=== PATIENT | female | born 1990 | race Caucasian/White ===

== ENCOUNTER 2016-12-28 11:12 | Inpatient (IN) | payer BC, OTHER ==
[~2016-12-28] VITALS: Ht 165.1 cm; Wt 53.5 kg
[2016-12-28] MEDS ORDERED: MAG HYDROX/AL HYDROX/SIMETH 30 ML LIQUID UDC PO PRN (20:45)
[2016-12-28] MEDS ORDERED: MIRALAX 17 GM POWD.PACK PO PRN (20:45)
[2016-12-28] MEDS ORDERED: DICYCLOMINE HCL 20 MG TABLET PO PRN (20:45)
[2016-12-28] MEDS ORDERED: CLONIDINE HCL 0.1 MG TABLET PO PRN (20:45)
[2016-12-28] MEDS ORDERED: MAGNESIUM HYDROXIDE 30 ML LIQUID UDC PO PRN (20:45)
[2016-12-28] MEDS ORDERED: LORAZEPAM 2 MG/1 ML VIAL IM PRN (20:45)
[2016-12-28] MEDS ORDERED: ONDANSETRON ODT 4 MG TAB.RAPDIS SL PRN (20:45)
[2016-12-28] MEDS ORDERED: LOPERAMIDE HCL 2 MG CAPSULE PO PRN ×2 (20:45)
[2016-12-28] MEDS ORDERED: ACETAMINOPHEN 325 MG TABLET PO PRN (20:45)
[2016-12-28] MEDS ORDERED: IBUPROFEN 400 MG TABLET PO PRN (20:45)
[2016-12-28] MEDS ORDERED: ONDANSETRON 4 MG/2 ML VIAL IM PRN (20:45)
[2016-12-28] MEDS ORDERED: LORAZEPAM 1 MG TABLET PO PRN ×2 (20:45)
[2016-12-28] MEDS ORDERED: THIAMINE HCL 200 MG/2 ML VIAL IM ONE (21:00)
[2016-12-28 21:10] VITALS: BP 112/74
--- NOTE | 2016-12-28 21:10 | NUR ---
ADMISSION NOTE: Patient is a 26 old female admitted to [facility] on 12/28/16 at 2110 for Alcohol and Gabapentin dependence. Patient is coming to intake office from ER [facility] ambulatory with steady gate, stable, alert and oriented x4. Speech is soft and clear. Patient has NKA, is on Regular Diet, and is Full Code status. Patient is on Seizure and Fall Precautions. Patient denies History of Seizures. PMH: Anxiety, Depression, Alcohol and Gabapentin Abuse, Bulimia and Anorexia Disorders. Patient has no PCP. VS: T: 97'9; BP: 112/74; HR: 57; RR: 18; O2 SAT: 100%. Pain level "0/10". Patient states that she is in the [facility] "first time for Safety Detox from Alcohol and Gabapentin". Patient reports that she uses Alcohol "since 16 year old. Longest period of sobriety during 5 months since 07/21/16 to 11/2016. Relapsed 2 weeks ago. She is drinking every day Vodka 750 ml. Last taken Vodka 750 ml PO on 12/28/16@ 1200". Patient reports of prescriptions home medications used: Gabapentin since 2013. Last 2 weeks patient used 400 mg PO every 6 hours, or 1200mg PO per day. Last dose taken 12/28/16: 400mg PO@ 1200. Methenamine Chacha PO last 2 weeks PO 1 gm BID, or 2 gm PO per day. Last dose taken 1 gm PO on 12/28/16 @ 1200". Patient brought her home medications. Initial assessment done. CIWA 12. Patient reports the following symptoms of withdrawal: Anxiety, agitation, nervousness, tremors, diaphoresis, restless legs, and fatigue. Patient denies SI/HI. Patient reports that she has been recently in "Detox treatment at ""[facility]" at [place], [place] two weeks ago for three days". Respirations even and unlabored. Patient denies chest pain and SOB. Lungs Sounds are clear bilaterally. Bowel Sounds is active in all 4 quadrants. Last Bowel Movement was " 12/28/16 at 1100". Skin is intact, warm and dry to touch. Doctor Romel Gallegos MD aware for patient's condition. Patient. is oriented to her room and unit, education provided on Hand Washing, Hepatitis C, Alcohol Abuse and Withdrawal, Falls and Seizures. Patient oriented to the unit and to the room. All needs met. Safety measures in the place. Call light within reach, bed in the lowest position, and locked, padded bed rails up x2. Will continue to monitor closely.
--- NOTE | 2016-12-28 21:10 | NUR ---
PRE-ADMISSION NOTE: Patient assessed in intake office at 2100 on 12/28/2016. Patient is coming from ER. Patient is ambulatory with steady gate, stable, alert and oriented x4. Speech is soft and clear. VS: T: 97'9; BP: 112/74; HR: 57; RR: 18; O2 SAT: 100%. Pain level "0/10". Patient states that she is in the [facility] "first time for Safety Detox from Alcohol and Gabapentin". Patient reports last use Alcohol "Vodka 750 ml PO - 12/28/16@ 1200". Patient reports "Prescription drugs" uses: Gabapentin " 400 mg PO every 6 hours, or 1200mg PO per day. Last taken 12/28/16: 400mg PO@ 1200 "; Methenamine Chacha PO " 1 gm PO BID, or 2 gm PO per day. Last taken 12/28/16: 1 gm PO @ 1200". Patient's CIWA 12. The patient presented with the following symptoms of withdrawal: anxiety, agitation, nervousness, tremors, diaphoresis, restless legs, and fatigue. Patient reports that she has been recently in "Detox treatment at ""[facility]" [place], [place] two weeks ago for three days". Patient instructed on unit protocol of vitals Q4H and CIWA assessments. Patient verbalized understanding and agreement. Patient also instructed on policy regarding destruction of any controlled substances/prescriptions brought to facility, and handling of all medications. Patient verbalized understanding and agreement. Will complete admission assessment when patient is brought up to unit.
[2016-12-28 21:42] LABS: *URINE HCG, QUAL NEGATIVE (NEGATIVE)
--- NOTE | 2016-12-28 21:55 | NUR ---
PRN ATIVAN PO 1 MG 1 TAB ADMINISTRATION Patient c/o increased anxiety and tremors. Patient assessed. CIWA 15. PRN Ativan PO 1 mg administrated as ordered with full glass of water. Patient tolerated well. All needs met. Safety measures in the place. Call light within reach, bed in the lowest position, and locked, padded bed rails up x2. Will continue to monitor closely.
[2016-12-28] MEDS ORDERED: LORAZEPAM 1 MG TABLET ONE (22:04)
[2016-12-28 22:06] LABS: *AMPHETAMINE, URINE NEGATIVE (NEGATIVE); *BARBITURATE, URINE NEGATIVE (NEGATIVE); *CANNABINOID, URINE NEGATIVE (NEGATIVE); *COCCAINE, URINE NEGATIVE (NEGATIVE); *OPIATE, URINE NEGATIVE (NEGATIVE); *PHENCYCLIDINE SCREEN,URINE NEGATIVE (NEGATIVE)
--- NOTE | 2016-12-28 22:55 | NUR ---
RE-ASSESSMENT Patient's in the room re-assessed. CIWA 8. Patient said that "Ativan was effective". All needs met. Safety measures in the place. Call light within reach, bed in the lowest position, and locked, padded bed rails up x2. Will continue to monitor closely.
[2016-12-28] MEDS ORDERED: GABA-536 PO (23:04)
[2016-12-28] MEDS ORDERED: METH1TAB29 PO (23:14)
[2016-12-28] MEDS ORDERED: METH1POW39 MC (23:14)
[2016-12-28] MEDS: diphenhydrAMINE 50 MG CAPSULE PO PRN (23:53)
--- NOTE | 2016-12-28 23:53 | NUR ---
PRN BENADRYL PO 50 MG 2 CAPS AND PRN CLONIDINE PO 0.1 MG 1 TAB ADMINISTRATION Patient c/o increased anxiety and insomnia. Patient assessed. VS WNL. PRN Benadryl PO and PRN Clonidine PO discussed with patient. Patient's educated for actions, adverse reactions, and side effects of Benadryl and Clonidine. Patient returned back knowledge by verbalized understanding. PRN Benadryl PO 50 mg 1 tab and PRN Clonidine PO 0.1 mg 1 tab administrated as ordered with full glass of water. All needs met. Safety measures in the place. Call light within reach, bed in the lowest position, and locked, padded bed rails up x2. Will continue to monitor closely.
[2016-12-28] MEDS ORDERED: CLONIDINE HCL 0.1 MG TABLET ONE (23:58)
[2016-12-29] VITALS: BP 118/77
[2016-12-29] MEDS ORDERED: diphenhydrAMINE 50 MG CAPSULE ONE (00:01)
--- NOTE | 2016-12-29 00:53 | NUR ---
RE-ASSESSMENT Patient is sleeping. Respirations even and unlabored. RR: 14. PRN Benadryl PO and PRN Clonidine PO was effective. All needs met. Safety measures in the place. Call light within reach, bed in the lowest position, and locked, padded bed rails up x2. Will continue to monitor closely.
--- NOTE | 2016-12-29 03:50 | NUR ---
RE-ASSESSMENT Patient is sleeping. Respirations even and unlabored. RR: 14. PRN Benadryl PO and PRN Clonidine PO was effective. All needs met. Safety measures in the place. Call light within reach, bed in the lowest position, and locked, padded bed rails up x2. Will continue to monitor closely. Addendum: 12/29/16 at 0354 by VIBHA RAYO RN Incorrect time.
[2016-12-29 04:00] VITALS: BP 90/49
--- NOTE | 2016-12-29 06:58 | NUR ---
END OF SHIFT NOTE: Patient endorsed to day shift nurse in stable condition. Report given. Patient is a 26 old female admitted to [facility] on 12/28/16 for Alcohol and Gabapentin dependence. Patient has NKA, is on Regular Diet, and is Full Code status. Patient is on Seizure and Fall Precautions. Patient denies History of Seizures. PMH: Anxiety, Depression, Alcohol and Gabapentin Abuse, Bulimia and Anorexia Disorders. Last CIWA decreased from 12 to 4 @ 0400. Patient presented the following symptoms of withdrawal: Anxiety, agitation, nervousness, tremors, diaphoresis, restless legs, and fatigue. Patient denies SI/HI. VS at 0400: T: 98'2; BP: 90/49; HR: 71; RR: 14; O2 SAT: 95%. Respirations even and unlabored. Last Bowel Movement's "12/28/16 at 1100". Skin is intact, warm and dry by touch. PRN Ativan PO, PRN Benadryl PO, and PRN Clonidine PO administrated to patient during shift were effective. Patient slept 5hours, intake 850 ml, voided x 1. All needs met. Safety measures in the place. Call light within reach, bed in the lowest position, and locked, padded bed rails up x2.
--- NOTE | 2016-12-29 07:55 | NUR ---
START OF SHIFT: RECEIVED PT A/O X 4 LAYING IN BED.SHE PRESENTS WITH ANXIOUS MOOD AND GUARDED AFFECT. SHE C/O ANXIETY,AND SWEATS,RESTLESSNESS. HER HANDS ARE TREMULOUS. SHE STATES SHE SLEPT RESTLESS LAST NIGHT. CIWA 16. PRN ATIVAN 2 MG PO GIVEN. MADE AWARE. WILL MONITOR EFFECTIVENESS. ENCOURAGED REST AND INCREASED FLUIDS TODAY. WILL CONTINUE TO MONITOR AND OFFER SAFE AND SUPPORTIVE ENVIRONMENT
[2016-12-29 08:00] VITALS: BP 100/60
[2016-12-29] MEDS: THIAMINE HCL 100 MG TABLET PO SCH (08:38)
[2016-12-29] MEDS: MULTIVITAMINS,THERAPEUTIC TABLET PO SCH (08:38)
[2016-12-29] MEDS: FOLIC ACID 1 MG TABLET PO SCH (08:38)
[2016-12-29] MEDS ORDERED: TUBERCULIN,PURIF.PROT.DERIV. 5 TU/0.1 ML TEST ID ONE (09:00)
--- NOTE | 2016-12-29 09:05 | NUR ---
REASSESSED PT AFTER 1 HR OF ATIVAN ADMINISTRATION. CIWA 7. ATIVAN PRN WAS EFFECTIVE.
[2016-12-29 12:00] VITALS: BP 108/68
[2016-12-29] MEDS ORDERED: LORAZEPAM 1 MG TABLET PO SCH (13:00)
[2016-12-29 14:12] LABS: BASOPHILS % (AUTO) 0.8 % (0.0-2.0); EOSINOPHILS % (AUTO) 0.9 % (0.0-7.0); HEMATOCRIT 38.8 % (37-47); HEMOGLOBIN 13.1 G/DL (12.0-16.0); LYMPHOCYTES % (AUTO) 24.2 % (20.5-51.5); MEAN CORPUSCULAR HEMOGLOBIN 31.7 UUG (27.0-31.0); MEAN CORPUSCULAR HGB CONC 34 g/dL (32.0-37.0); MEAN CORPUSCULAR VOLUME 93.9 FL (81.0-99.0); MONOCYTES # (AUTO) 0.4 K/UL (0.1-1.30); MONOCYTES % (AUTO) 9.4 % (0.0-11.0); NEUTROPHILS # (AUTO) 2.9 K/UL (1.8-8.9); NEUTROPHILS % (AUTO) 64.7 % (38.5-71.5); PLATELET COUNT (AUTO) 255 K/UL (150-450); RED BLOOD CELL COUNT(AUTO) 4.13 MIL/UL (4.2-5.4); WHITE BLOOD COUNT (AUTO) 4.3 K/UL (4.0-11.2)
[2016-12-29] MEDS: GABAPENTIN 300 MG CAPSULE PO SCH ×2 (14:18→20:36)
[2016-12-29] MEDS: LORAZEPAM 1 MG TABLET PO SCH ×2 (14:18→20:36)
[2016-12-29 14:41] LABS: ETHANOL < 3 MG/DL (0-0)
[2016-12-29 14:52] LABS: ALANINE AMINOTRANSFERASE 22 U/L (14-59); ALKALINE PHOSPHATASE 107 U/L (50-136); AMYLASE 117 U/L (25-115); ASPARTATE AMINOTRANSFERASE 36 U/L (15-37); BILIRUBIN,TOTAL 0.5 mg/dL (0.2-1.0); CARBON DIOXIDE 31 mmol/L (21-32); CHLORIDE 102 mmol/L (98-107); CREATININE 0.9 mg/dL (0.6-1.3); GLUCOSE 93 mg/dL (74-106); LIPASE 330 U/L (73-393); MAGNESIUM 1.7 mg/dL (1.8-2.4); POTASSIUM 3.7 mmol/L (3.5-5.1); TOTAL PROTEIN, SERUM 7.4 g/dL (6.4-8.2); UREA NITROGEN, BLOOD 9 mg/dL (7-18)
[2016-12-29 15:03] LABS: THYROID STIMULATING HORMONE 2.218 mIU/mL (0.358-3.740)
[2016-12-29 16:00] VITALS: BP 97/59
--- NOTE | 2016-12-29 18:14 | NUR ---
CIWA DEFERRED PT IS ASLEEP.
--- NOTE | 2016-12-29 18:45 | NUR ---
END OF SHIFT: PT WAS STARTED ON ATIVAN TAPER AT 1300. SHE STATES IT IS EFFECTIVE. PRN ATIVAN GIVEN THIS AM FOR CIWA 16 AND WAS EFFECTIVE AEB CIWA 7 AFTER 1 HR. PT RESTED IN BED MOST OF SHIFT AND WAS COMPLIANT WITH INCREASED FLUIDS.PPD PLANTED TO LFA. PPD PLANTED TO LFA. PT HAS A FAIR APPETITE. LAST CIWA DEFERRED PT WAS ASLEEP. WILL PASS SHIFT REPORT TO ONCOMING NIGHT NURSE.
--- NOTE | 2016-12-29 19:15 | NUR ---
Start of Shift Note: Patient is a 26 y/o female admitted on 12/28/16 for ETOH dependence. Patient reported drinking 750ml of Vodka daily for 2 weeks. Patient reported using Gabapentin 1200mg daily for 2 weeks. Patient has Anxiety, Depression, Eating disorders, and hx of UTI. No history of seizures. Patient is on a regular diet with no known food and drug allergies. Full Code status. Fall and Seizure precaution. Patient started today on a 4-day Ativan taper and tolerating well. Last CIWA is 7. Patient was given PRN Ativan in the morning. Patient is alert & oriented x4. Patient is ambulatory with a steady gait. No shortness of breath noted. Abdomen soft & non-distended. No nausea noted. Patient denies pain/discomfort. Patient complains of moderate anxiety. No agitations noted. Patient denies hallucinations. Safety precautions are in place. Bed locked in lowest position. Both side rails up. Call light within pts reach. Will continue to monitor patient.
[2016-12-29 20:00] VITALS: BP 134/77
[2016-12-30] VITALS: BP 105/58
[2016-12-30 04:00] VITALS: BP 104/62
--- NOTE | 2016-12-30 07:10 | NUR ---
Start of Shift Report from night nurse: Pt is a 26 y/o female her for Etoh dependence r/t 750mL Vodka daily for 2 weeks and Gabapentin 1200mg PO/d for 2 wks; 4 day Ativan taper ordered. Pt is a full code, regular diet, NKA, fall and seizure precautions noted.HHs: Anxiety, depression , eating d/o'd of bulimia and anorexia, UTi multiple times and relapsed since last detox in [place] 2 weeks ago. Endorsed to me to f/u with Dr. Gallegos re: the pt's home medications to be reconciled and with the psychiatrist for Trazodone for sleep. NO PRN medications given last night. V/S stable. Skin is intact. No new orders or labs endorsed to me. last CIWA 4. Pt is asleep in room. Will cont. to monitor the pt.
--- NOTE | 2016-12-30 07:19 | NUR ---
End of Shift Note: Endorse pt to day shift nurse. Pt continues on his Ativan taper and tolerating well. Patient is compliant with medications, treatment and plan of care. Pt reported taper medications is effective in controlling her withdrawal symptoms. Last CIWA is 4. No PRN medications were given during day shift. Pt remained stable and vitals remains WNL. Pt slept for a total of 9 hours. Pt consumed 855 ml of fluid. Encourage pt to increase fluid intake. Voided 2x with no bowel movement. All needs attended & met. Safety precautions are in place Will continue to monitor patient.
[2016-12-30 08:00] VITALS: BP 100/62
[2016-12-30 08:11] LABS: HEPATITIS B SURFACE AG Negative (Negative)
[2016-12-30] MEDS: GABAPENTIN 300 MG CAPSULE PO SCH ×3 (09:00→21:35)
[2016-12-30] MEDS: LORAZEPAM 1 MG TABLET PO SCH ×4 (09:00→21:00)
[2016-12-30] MEDS ORDERED: LORAZEPAM 1 MG TABLET PO SCH (09:00)
--- NOTE | 2016-12-30 10:00 | NUR ---
Medication Non-Administration Pt is asleep in room and sedated so HELD 0900H Ativan scheduled. is aware. Will cont. to monitor the pt. Addendum: 12/30/16 at 1926 by DARA JACKSON RN Edgard ZULETA since pt is asleep.
[2016-12-30 12:00] VITALS: BP 115/82
[2016-12-30] MEDS: MULTIVITAMINS,THERAPEUTIC TABLET PO SCH (13:41)
[2016-12-30] MEDS: THIAMINE HCL 100 MG TABLET PO SCH (13:41)
[2016-12-30] MEDS: FOLIC ACID 1 MG TABLET PO SCH (13:41)
[2016-12-30 16:00] VITALS: BP 140/75
--- NOTE | 2016-12-30 17:30 | NUR ---
Medication [id number] Pt is awake A&O x 4 in room and refused Ativan scheduled at 1700H. Pt states that she wants to get d/c'd as soon as possible tonight or tomorrow and does not want to stay until Tuesday as she states is discussed with the window caser and states that she will go AMA tomorrow. I notified the CN, window caser and Eric. Will cont. to monitor the pt.
--- NOTE | 2016-12-30 19:30 | NUR ---
Start of Shift Note: Patient is a 26 y/o female admitted on 12/28/16 for ETOH dependence. Patient reported drinking 750ml of Vodka daily for 2 weeks. Patient reported using Gabapentin 1200mg daily for 2 weeks. Patient has Anxiety, Depression, Eating disorders, and hx of UTI. No history of seizures. Patient is on a regular diet with no known food and drug allergies. Full Code status. Fall and Seizure precaution. Patient is on a 4-day Ativan tape. Pt's morning medication @ 0900 were held d/t sedation & pt refused scheduled Ativan @ 1900. Pt might leave AMA tonight or tomorrow. Pt stated that she cant stay until Tuesday. Rolls Mill Operator and Pt advocate is aware of possible AMA . Last CIWA is 6. No PRN medications were given during day shift. Patient is alert & oriented x4. Patient is ambulatory with a steady gait. No shortness of breath noted. Abdomen soft & non-distended. No nausea noted. Patient denies pain/discomfort. Patient complains of mild anxiety. No agitations noted. Patient denies hallucinations. Safety precautions are in place. Bed locked in lowest position. Both side rails up. Call light within pts reach. Will continue to monitor patient.
--- NOTE | 2016-12-30 19:31 | NUR ---
End of the Shift Report to night nurse: Pt is a 26 y/o female her for Etoh dependence r/t 750mL Vodka daily for 2 weeks and Gabapentin 1200mg PO/d for 2 wks; 4 day Ativan taper ordered and pt slept during until the afternoon so pt missed the 0900H of Ativan and Gabapentin. Pt is a full code, regular diet, NKA, fall and seizure precautions noted. HHx: Anxiety, depression , eating d/o's of bulimia and anorexia, UTi multiple times and relapsed since last detox in [place] 2 weeks ago. No PRN medications given during my shift. V/S stable. Skin is intact. Pt denies chest pain. No SOB noted. Pt missed attending group therapy and activities during my shift since she slept the majority of the time. Pt states that she may leave AMA tonight or tomorrow so I endorsed to CN, Switchboard Operator Supervisor and pt advocate. Last CIWA
[2016-12-30 20:00] VITALS: BP 112/73
[2016-12-30] MEDS ORDERED: MAGNESIUM OXIDE 400 MG TABLET PO ONE (21:00)
[2016-12-30] MEDS: diphenhydrAMINE 50 MG CAPSULE PO PRN (22:59)
--- NOTE | 2016-12-30 22:59 | NUR ---
PRN Benadryl Patient complains of inability to fall asleep. Patient requested for medication for sleep. PRN Trazodone administered as ordered. Will continue to monitor patient.
--- NOTE | 2016-12-30 23:59 | NUR ---
PRN Reassessment Patient asleep in bed and appears comfortable. No shortness of breath noted. Respiration even & unlabored. Safety measures in place. Will continue to monitor patient.
[2016-12-31] VITALS: BP 123/76
[2016-12-31 04:00] VITALS: BP 103/65
--- NOTE | 2016-12-31 07:01 | NUR ---
End of Shift Note: Endorse pt to day shift nurse. Pt has been refusing her Ativan taper and is planning to leave AMA today. Patient is taking her scheduled medication except for her taper medications. Educated pt of importance to finish treatment but pt insisted that she has something to do and cant stay longer. Last CIWA is 4. Pt noted with slight tremors and anxiety. Pt denies pain/discomfort, sweating, nausea & hallucinations. Pt was given PRN Benadryl for sleep and was effective. Pt remained stable and vitals remains WNL. Pt slept for a total of 7 hours. Pt consumed 1350 ml of fluid. Voided 3x with no bowel movement. All needs attended & met. Safety precautions are in place Will continue to monitor patient.
--- NOTE | 2016-12-31 07:30 | NUR ---
Start of shift note; Patient is AOX4. Patient is a 26 year old female admitted on 12/28/16 for ETOH withdrawals. Patient was placed on 4 day Ativan taper, no adverse reactions noted. Patient reported history of anxiety, depression, eating disorder. NKA, full code status on a regular diet. Per endorsement, patient has been refusing Ativan taper doses and expressed that she would like to leave today. Safety measures secured. Will continue to monitor patient.
[2016-12-31 08:00] VITALS: BP 107/66
[2016-12-31] MEDS: THIAMINE HCL 100 MG TABLET PO SCH (08:14)
[2016-12-31] MEDS: FOLIC ACID 1 MG TABLET PO SCH (08:14)
[2016-12-31] MEDS: GABAPENTIN 300 MG CAPSULE PO SCH (08:14)
[2016-12-31] MEDS: MULTIVITAMINS,THERAPEUTIC TABLET PO SCH (08:14)
[2016-12-31] MEDS ORDERED: LORAZEPAM 1 MG TABLET PO SCH ×2 (09:00)
[2016-12-31 12:00] VITALS: BP 117/84
[2016-12-31 13:45] LABS: *AMPHETAMINE, URINE NEGATIVE (NEGATIVE); *BARBITURATE, URINE NEGATIVE (NEGATIVE); *CANNABINOID, URINE NEGATIVE (NEGATIVE); *COCCAINE, URINE NEGATIVE (NEGATIVE); *OPIATE, URINE NEGATIVE (NEGATIVE); *PHENCYCLIDINE SCREEN,URINE NEGATIVE (NEGATIVE)
--- NOTE | 2016-12-31 14:50 | NUR ---
Discharge note; Patient is AOX4. Patient is medically cleared to for discharge. All valuables, belongings and medications given to patient. Patient was escorted out of the facility at 1450. Patient left in a stable condition, denies suicidal/homicidal ideations. Met all needs.
[2017-01-01] MEDS ORDERED: LORAZEPAM 1 MG TABLET PO SCH ×2 (09:00)
[2017-01-02] MEDS ORDERED: LORAZEPAM 1 MG TABLET PO SCH (09:00)
== END 2016-12-31 14:50 | disposition home or self-care (01) | DRG 895 ==
LOC: SRC 20:31
PROVIDERS: ADMIT Internal Medicine; ATTEND Internal Medicine
PROC: HZ2ZZZZ Detoxification Services for Substance Abuse Treatment (ICD-10-PCS; principal; 2016-12-28)
PROC: HZ31ZZZ Individual Counseling for Substance Abuse Treatment, Behavioral (ICD-10-PCS; 2016-12-29)
PROC: HZ41ZZZ Group Counseling for Substance Abuse Treatment, Behavioral (ICD-10-PCS; 2016-12-30)
DX: F10.230 Alcohol dependence with withdrawal, uncomplicated (principal); K85.20 Alcohol induced acute pancreatitis without necrosis or infection; Y90.9 Presence of alcohol in blood, level not specified; Z81.8 Family history of other mental and behavioral disorders; Y90.8 Blood alcohol level of 240 mg/100 ml or more; F41.9 Anxiety disorder, unspecified; E86.0 Dehydration; E83.42 Hypomagnesemia; F32.9 Major depressive disorder, single episode, unspecified
CPT/HCPCS: 36415; 70030-TC; 80307; 83690; 83735; 84443; 84703; 85025; 86580; 86592; 86705; 86803; 87340; 87806; G0480; J3411; Q0163

== ENCOUNTER 2016-12-28 13:22 | Emergency (ER) | payer BC, OTHER ==
[~2016-12-28] VITALS: Ht 170.2 cm; Wt 63.5 kg
--- NOTE | 2016-12-28 13:25 | NUR ---
Patient arrived to intake department visibly intoxicated needing assistance to ambulate. Patient was seated into wheelchair. Unable to understand directions or answer questions. Notified ER that patient will be transferred. Patient was transferred via wheelchair to room 3 ER. Report given to BRITANY Avila.
[2016-12-28] MEDS ORDERED: IV NORMAL SALINE 1000 ML BAG IV ONE ×2 (13:45→15:00)
[2016-12-28 14:35] LABS: BASOPHILS % (AUTO) 1.1 % (0.0-2.0); EOSINOPHILS # (AUTO) 0.1 K/uL (0.0-0.7); EOSINOPHILS % (AUTO) 1.5 % (0.0-7.0); HEMATOCRIT 35.8 % (37-47); HEMOGLOBIN 12.3 G/DL (12.0-16.0); LYMPHOCYTES # (AUTO) 1.4 K/UL (0.8-4.8); MEAN CORPUSCULAR HGB CONC 34 g/dL (32.0-37.0); MEAN CORPUSCULAR VOLUME 93.6 FL (81.0-99.0); MONOCYTES # (AUTO) 0.3 K/UL (0.1-1.30); MONOCYTES % (AUTO) 8.8 % (0.0-11.0); NEUTROPHILS % (AUTO) 52.6 % (38.5-71.5); PLATELET COUNT (AUTO) 220 K/UL (150-450); RED BLOOD CELL COUNT(AUTO) 3.83 MIL/UL (4.2-5.4); WHITE BLOOD COUNT (AUTO) 3.8 K/UL (4.0-11.2)
--- NOTE | 2016-12-28 14:35 | NUR ---
Pt had an episode of incontinence of urine, changed, able to sit in a chair w/ support; back in bed, inoxicated slurred speech; continue w/ MD orders;
[2016-12-28 14:38] LABS: CREATININE 0.8 mg/dL (0.6-1.3); POTASSIUM 3.7 mmol/L (3.5-5.1)
[2016-12-28 16:21] LABS: *AMPHETAMINE, URINE NEGATIVE (NEGATIVE); *BARBITURATE, URINE NEGATIVE (NEGATIVE); *CANNABINOID, URINE NEGATIVE (NEGATIVE); *COCCAINE, URINE NEGATIVE (NEGATIVE); *OPIATE, URINE NEGATIVE (NEGATIVE); *PHENCYCLIDINE SCREEN,URINE NEGATIVE (NEGATIVE)
--- NOTE | 2016-12-28 18:15 | NUR ---
Pt awake, oriented to place, cont to receive IV fluids; vss; cont to monitor;
--- NOTE | 2016-12-28 20:21 | NUR ---
Patient discharged to [facility] in stable conditon. Written and verbal after care instructions given. Patient verbalizes understanding of instructions.
[2016-12-28] MEDS ORDERED: GABA-536 PO (23:04)
[2016-12-28] MEDS ORDERED: METH1TAB29 PO (23:14)
[2016-12-28] MEDS ORDERED: METH1POW39 MC (23:14)
== END 2016-12-28 20:22 | disposition home or self-care (01) ==
LOC: ER 13:22
DX: F10.129 Alcohol abuse with intoxication, unspecified (principal)
CPT/HCPCS: 36415; 80307; 85025; A4663; G0480

== ENCOUNTER 2017-07-10 14:44 | Inpatient (IN) | payer BC, OTHER ==
[~2017-07-10] VITALS: Ht 170.2 cm; Wt 56.2 kg
[~2017-07-10 14:44] MED LIST: GABA-536 PO
--- NOTE | 2017-07-10 15:00 | NUR ---
Pre-Assessment Note Assessed client in intake office, client vitals BP 124/81, P 102, RR 16, Temp 97.8, spO2 @ 98% pain 0/10. Client appears visibly intoxicated, she does not need assistance to ambulate, she is a/o x 4, she avoids eye contact, she presents with glassy eyes, delayed speech. she explained unit and facility protocols, client verbalized understanding. She reports no episodes of withdrawal-indices seizure. She reports NKA. PCP Humphrey Ruvalcaba
--- NOTE | 2017-07-10 15:25 | NUR ---
ADMISSION 26 Year old female, arrived to [facility] unit, noted ambulating with steady gait. Patients body search completed by female CARBON ACCOUNTANT, no contraband found. body search completed, noted with intact skin, no breakdown, bruising, or discoloration noted. Patient is 5 feet 7 inches and is 124 lbs. Patients vital signs: 124/81 P: 102 t: 97.8 r: 16 o2 sat: 98%. Patient reports no known drug allergies. Patient reports substance use history of: etoh. Patient reports began using alcohol at the age of 16, but for the past two weeks has been consuming vodka 750ml or 4-6 beers on a daily basis. Patient reports she has been sober for 7 months after leaving [facility] detox. Patient was admitted at [facility] in December 28, 2016, completed detox, and as per patient did not go to treatment, went home, but remained sober. Patient brought home medication Neurontin 400mg PO qid, medication was reconciled and put into [facility]. Patient reports past medical history of anxiety and depression. Patient denies any history of seizures. patient denies any family history of substance abuse. Patient is alert and oriented x4. Patient is able to verbalized needs. Patient noted ambulating with steady gait, prevents with: intermittent nausea and anxiety with admitting ciwa score of: 7. Patient denies any hospitalization in the past 30 days. Patients pupils are equal and reactive to light, 4mm. Patients abdomen is soft and non distended, bowel sounds heard in all quadrants. Patients respirations are even and unlabored, no sob, lungs clear upon auscultation. Seizure and fall precaution observed and in place. bed in low position, padded side rails up and call light with in reach. Dr. Tabares and Dr. Olmos aware of new admission. Dr. Tabares input admitting orders. Safety measure sin place. call light with in reach, will monitor closely.
[2017-07-10] MEDS ORDERED: GABA-536 PO (15:32)
[2017-07-10 15:39] LABS: *URINE HCG, QUAL NEGATIVE (NEGATIVE)
[2017-07-10 15:47] LABS: *AMPHETAMINE, URINE NEGATIVE (NEGATIVE); *BARBITURATE, URINE NEGATIVE (NEGATIVE); *CANNABINOID, URINE NEGATIVE (NEGATIVE); *OPIATE, URINE NEGATIVE (NEGATIVE); *PHENCYCLIDINE SCREEN,URINE NEGATIVE (NEGATIVE)
[2017-07-10 16:03] LABS: *COCCAINE, URINE NEGATIVE (NEGATIVE)
[2017-07-10] MEDS ORDERED: MIRALAX 17 GM POWD.PACK PO PRN (16:15)
[2017-07-10] MEDS ORDERED: DICYCLOMINE HCL 20 MG TABLET PO PRN (16:15)
[2017-07-10] MEDS ORDERED: LOPERAMIDE HCL 2 MG CAPSULE PO PRN ×2 (16:15)
[2017-07-10] MEDS ORDERED: HYDROXYZINE PAMOATE 25 MG CAPSULE PO PRN (16:15)
[2017-07-10] MEDS ORDERED: LORAZEPAM 2 MG/1 ML VIAL IM PRN (16:15)
[2017-07-10] MEDS ORDERED: CLONIDINE HCL 0.1 MG TABLET PO PRN (16:15)
[2017-07-10] MEDS ORDERED: ONDANSETRON 4 MG/2 ML VIAL IM PRN (16:15)
[2017-07-10] MEDS ORDERED: ACETAMINOPHEN 325 MG TABLET PO PRN (16:15)
[2017-07-10] MEDS ORDERED: IBUPROFEN 400 MG TABLET PO PRN (16:15)
[2017-07-10] MEDS ORDERED: MAGNESIUM HYDROXIDE 30 ML LIQUID UDC PO PRN (16:15)
[2017-07-10] MEDS ORDERED: LORAZEPAM 1 MG TABLET PO PRN ×2 (16:15)
[2017-07-10] MEDS ORDERED: ONDANSETRON ODT 4 MG TAB.RAPDIS SL PRN ×2 (16:15→22:15)
[2017-07-10] MEDS ORDERED: THIAMINE HCL 200 MG/2 ML VIAL IM ONE (16:15)
[2017-07-10] MEDS ORDERED: MAG HYDROX/AL HYDROX/SIMETH 30 ML LIQUID UDC PO PRN (16:15)
--- NOTE | 2017-07-10 16:15 | NUR ---
PRN ZOFRAN IM Patient noted with intermittent nausea, also noted with two episodes of emesis, patient reports feeling nauseous. administered Zofran 4mg IM as ordered, will monitored effectiveness of medication.
--- NOTE | 2017-07-10 16:45 | NUR ---
MAGGIEAN REASSESSMENT patient reports medication somewhat effective, feels a little bit less nauseous. provided with crackers and Gingerall encouraged as tolerated. will continue to monitor.
[2017-07-10] MEDS: GABAPENTIN 400 MG CAPSULE PO SCH ×2 (17:01→23:16)
[2017-07-10 17:03] VITALS: BP 150/85
[2017-07-10 17:36] LABS: BASOPHILS # (AUTO) 0.1 K/uL (0.0-8.0); BASOPHILS % (AUTO) 1.2 % (0.0-2.0); EOSINOPHILS % (AUTO) 0.4 % (0.0-7.0); HEMATOCRIT 42.5 % (31.2-41.9); HEMOGLOBIN 14.5 g/dL (10.9-14.3); LYMPHOCYTES # (AUTO) 1.5 K/uL (20.0-40.0); LYMPHOCYTES % (AUTO) 23.1 % (20.5-51.5); MEAN CORPUSCULAR HEMOGLOBIN 32.9 uug (24.7-32.8); MEAN CORPUSCULAR HGB CONC 34 g/dL (32.3-35.6); MEAN CORPUSCULAR VOLUME 96.3 fL (75.5-95.3); MONOCYTES # (AUTO) 0.4 K/uL (2.0-10.0); MONOCYTES % (AUTO) 6.8 % (0.0-11.0); NEUTROPHILS # (AUTO) 4.3 K/uL (1.8-8.9); NEUTROPHILS % (AUTO) 68.5 % (38.5-71.5); PLATELET COUNT (AUTO) 370 K/uL (179-408); RED BLOOD CELL COUNT(AUTO) 4.41 MIL/uL (3.63-4.92); WHITE BLOOD COUNT (AUTO) 6.3 K/uL (3.8-11.8)
[2017-07-10 17:37] LABS: BILIRUBIN,TOTAL 0.6 mg/dL (0.2-1.0); CREATININE 0.9 mg/dL (0.6-1.3); MAGNESIUM 2.2 mg/dL (1.8-2.4); POTASSIUM 3.7 mmol/L (3.5-5.1); TOTAL PROTEIN, SERUM 8.6 g/dL (6.4-8.2)
--- NOTE | 2017-07-10 18:30 | NUR ---
IV INSERTION Patient inserted an Saline lock to left hand 22gauge, procedure well tolerated, aseptic technique observed during procedure. procedure well tolerated, IV site, patent, flushed with 10cc NS, no s/sx of infiltration noted, started patient on IVF D5 1/2 NS 125ML/HR. will continue to monitor closely.
[2017-07-10] MEDS: IV D5 1/2 NS 1000 ML 1,000 ML IV SCH (18:37)
--- NOTE | 2017-07-10 18:47 | NUR ---
COMMUNICATION Received critical lab value of blood alcohol level of 0.424, notified Dr. Tabares with new orders for patient to be with 1:1 sitter, and to start IVF d5 1/2 NS at 125cc/hr for 24 hours, and for lab work. orders were read back and clarified by charge nurse and input into [employer] by charge nurse, will administer as ordered. Addendum: 07/10/17 at 1850 by MATT CALLAWAY LVN NOTE ABOVE CORRECT TIME: 1820
--- NOTE | 2017-07-10 18:50 | NUR ---
START OF SHIFT NOTE: Patient is a 26 year old female admitted on 07/10/10`7 for Alcohol dependence. 5 Day Ativan taper ordered to start on 07/11/2017. Patient reports NKA, Regular Diet, Full Code, Fall and Seizures precautions. Patient denies History of Seizures. Patient denies SI/HI. PMH: Anxiety, Depression. Patient is alert and oriented x4. Patient is on 1:1 for Safety. CIWA 7. Patient's anxiety agitation, nervousness, tremors, restlessness, and sweating. VS: T: 98.4, HR: 111, RR: 19, RA O2Sat: 98%, BP: 117/78, Pain level: "0/10". Respirations unlabored and even. Lungs Sounds are clear thoroughly. Abdomen is soft, non-tender. Bowels Sounds presents in all x4 quadrants. Skin is intact, warm, and dry. IV on Left Hand, gauge 22 was inserted by day shift nurse as ordered. IV site patent and intact. Dressing is dry and clean. IVF with ordered D5 - /2 NS Soln @125mls/hr started @ 1837. Encouraged to fluids intake as tolerated. Encouraged to attending groups activities. All needs met. Safety measures in place: Call light within reach, bed locked, and in lowest position, padded bed rails up bilaterally. Patient endorsed by day shift nurse, report received. Addendum: 07/10/17 at 2137 by VIBHA RAYO RN Patient is a 26 year old female admitted on 07/10/2017 for Alcohol dependence.
[2017-07-10 20:00] VITALS: BP 117/78
--- NOTE | 2017-07-10 22:17 | NUR ---
PRN ZOFRAN INJ. 4 MG/2 ML IM ADMINISTRATION. Patient c/o nausea and vomiting x2. Doctor Romel Tabares MD aware. PRN Zofran 4 mg/2ml 1Inj. IM. administrated in Right Deltoid Muscle as ordered. Patient tolerated well. All needs met. Safety measures on place. Call light within reach, bed in lowest position and locked, padded rails up bilaterally rails up bilaterally. Will continue to monitor closely.
[2017-07-10] MEDS ORDERED: ONDANSETRON 4 MG/2 ML VIAL ONE (22:26)
--- NOTE | 2017-07-10 22:47 | NUR ---
RE-ASSESSMENT Patient denies nausea and vomiting. PRN Zofran 4 mg/2ml 1Inj. IM. administrated @2217 was effective. All needs met. 1:1 sitter for safety at bedside. Safety measures on place. Call light within reach, bed in lowest position and locked, padded rails up bilaterally rails up bilaterally. Will continue to monitor closely.
[2017-07-10] MEDS: diphenhydrAMINE 50 MG CAPSULE PO PRN (23:16)
--- NOTE | 2017-07-10 23:16 | NUR ---
PRN BENADRYL 50 MG 1 CAP PO AND PRN ATIVAN 2 MG 2 TAB PO ADMINISTRATION Patient c/o increased anxiety, tremors, and insomnia. CIWA 16. PRN Benadryl 50 mg 1 capsule PO for insomnia and PRN Ativan 2 mg 2 tab PO for CIWA 16 administrated with full glass of water as ordered. Patient tolerated well. All needs met. 1:1 sitter for safety at bedside. Safety measures on place. Call light within reach, bed in lowest position and locked, padded rails up bilaterally rails up bilaterally. Will continue to monitor closely.
[2017-07-11] VITALS: BP 122/78
--- NOTE | 2017-07-11 00:16 | NUR ---
RE-ASSESSMENT Patient is sleeping. Respirations even and unlabored. RR:16. PRN Benadryl 50 mg 1 capsule PO and PRN Ativan 2 mg 2 tab PO administrated @2316 were effective. All needs met. Safety measures on place. 1:1 sitter for safety at bedside. Call light within reach, bed in lowest position and locked, padded bed rails up bilaterally. Will continue to monitor closely.
[2017-07-11] MEDS: IV D5 1/2 NS 1000 ML 1,000 ML IV SCH ×2 (02:02→10:30)
[2017-07-11 04:00] VITALS: BP 104/60
[2017-07-11] MEDS: GABAPENTIN 400 MG CAPSULE PO SCH ×4 (06:06→22:04)
[2017-07-11 06:38] LABS: BASOPHILS % (AUTO) 0.8 % (0.0-2.0); EOSINOPHILS # (AUTO) 0.1 K/uL (0.0-0.7); EOSINOPHILS % (AUTO) 1.4 % (0.0-7.0); HEMATOCRIT 33.8 % (31.2-41.9); HEMOGLOBIN 11.5 g/dL (10.9-14.3); LYMPHOCYTES # (AUTO) 1.1 K/uL (20.0-40.0); LYMPHOCYTES % (AUTO) 22.9 % (20.5-51.5); MEAN CORPUSCULAR HEMOGLOBIN 32.7 uug (24.7-32.8); MEAN CORPUSCULAR HGB CONC 34 g/dL (32.3-35.6); MEAN CORPUSCULAR VOLUME 96.2 fL (75.5-95.3); MONOCYTES # (AUTO) 0.4 K/uL (2.0-10.0); MONOCYTES % (AUTO) 8.3 % (0.0-11.0); NEUTROPHILS # (AUTO) 3.3 K/uL (1.8-8.9); NEUTROPHILS % (AUTO) 66.6 % (38.5-71.5); PLATELET COUNT (AUTO) 239 K/uL (179-408); RED BLOOD CELL COUNT(AUTO) 3.51 MIL/uL (3.63-4.92)
--- NOTE | 2017-07-11 06:40 | NUR ---
END OF SHIFT NOTE: Patient is a 26 year old female admitted on 07/10/2017 for Alcohol dependence. 5 Day Ativan taper ordered to start on 07/11/2017. Patient reports NKA, Regular Diet, Full Code, Fall and Seizures precautions. Patient denies History of Seizures. Patient denies SI/HI. PMH: Anxiety, Depression. Patient is on 1:1 for Safety. Last CIWA 5 @0400. Patient presented during my shift with anxiety, agitation, nervousness, N/V, tremors, restlessness, and sweating. Last VS @0400: T: 98.1, HR: 83, RR: 17, RA O2Sat: 97%, BP: 104/60, pain level: "0/10". Respirations unlabored and even. Skin is intact, warm, and dry. IV on left hand patent and intact, flashed with NS. Dressing is dry and clean. IVF with ordered D5 - 1/2 NS @125mls/hr running as ordered. PRN Zofran 4 mg/2ml 1Inj. IM administrated for nausea and vomitingx2 @2217 IM, Right Deltoid Muscle, PRN Benadryl 50 mg 1 capsule PO for insomnia administrated @2316, and PRN Ativan 2 mg 2 tab PO for CIWA 16 administrated @2316 were effective. Patient remains compliant with medications. Patient slept 7 hours, intake 2,091 ml, voidedx5, vomiting x2, stool x1. Encouraged to fluids intake as tolerated. Encouraged to attending groups activities. All needs met. 1:1 sitter for safety at bedside. Safety measures in place: Call light within reach, bed locked, and in lowest position, padded bed rails up bilaterally. Patient endorsed to day shift nurse, report given.
[2017-07-11 07:05] LABS: BILIRUBIN,DIRECT 0.2 mg/dL (0.0-0.2); BILIRUBIN,TOTAL 0.7 mg/dL (0.2-1.0); TOTAL PROTEIN, SERUM 6.2 g/dL (6.4-8.2)
--- NOTE | 2017-07-11 07:34 | NUR ---
Start of shift note; Received report from night nurse. Patient is a 26 year old female admitted on 07/10/17 for ETOH dependence. Patient was placed on a 5 day Ativan taper to start today. Patient reported history of depression and anxiety. IV site noted on patient's left hand 22G, IV fluids D%5 1/2 NS noted running @ 125ml/hr to run for 24 hours. Patient slept for 8 hours. Patient's last CIWA is 5 per endorsement. Patient is on fall and seizure precaution. Patient is under direct supervision for safety. All safety measures secured. Will continue to monitor patient.
[2017-07-11 08:00] VITALS: BP 118/80
[2017-07-11] MEDS: MULTIVITAMINS,THERAPEUTIC TABLET PO SCH (08:15)
[2017-07-11] MEDS: FOLIC ACID 1 MG TABLET PO SCH (08:15)
[2017-07-11] MEDS: THIAMINE HCL 100 MG TABLET PO SCH (08:15)
[2017-07-11] MEDS: DOCUSATE SODIUM 250 MG CAPSULE PO SCH (08:15)
[2017-07-11] MEDS ORDERED: TUBERCULIN,PURIF.PROT.DERIV. 5 TU/0.1 ML TEST ID ONE (09:00)
[2017-07-11] MEDS ORDERED: LORAZEPAM 1 MG TABLET PO SCH (09:00)
[2017-07-11] MEDS ORDERED: 5 DAY TAPER OF LORAZEPAM -SERENITY PROTOCOL PO PRN (09:00)
--- NOTE | 2017-07-11 10:41 | NUR ---
MD order; MD ordered to discontinue IV fluids. Order carried out. IV site discontinued. MD also discontinued 1:1 sitter. Will continue to monitor patient.
[2017-07-11 12:00] VITALS: BP 114/72
[2017-07-11] MEDS: LORAZEPAM 1 MG TABLET PO SCH ×2 (14:28→21:00)
[2017-07-11 16:00] VITALS: BP 115/74
--- NOTE | 2017-07-11 18:51 | NUR ---
End of shift note; Patient is AOX4. Patient is a 26 year old female admitted on 07/10/17 for ETOH dependence. Patient was placed on a 5 day Ativan taper , no adverse reactions noted. Patient reported history of depression and anxiety. Patient remained compliant with treatment plan and medication regime. Medications noted to be effective. All safety measures secured. Met all needs.
--- NOTE | 2017-07-11 19:05 | NUR ---
START OF SHIFT Patient is a 26-year-old female admitted on 07/10/17 for ETOH dependence. Past medical history includes anxiety and depression, with a history of recurrent urinary tract infections. Patient is currently on a 5-day Ativan taper, tolerating well. Patient is FULL code, NKA, and on a regular diet. Patient is on fall and seizure precautions, with no history of seizure. Upon assessment, patient is alert and oriented x4. Patient states "I feel pretty good tonight." Safety measures in place, bed locked in low position, side rails up x2, call light within reach. Will conitnue to monitor.
[2017-07-11 20:00] VITALS: BP 119/85
[2017-07-12] VITALS: BP 101/58
--- NOTE | 2017-07-12 | NUR ---
CIWA DEFERRED CIWA deferred due to patient asleep; to be assessed and scored while patient is awake, per protocol. Patient's respirations are 20/min, even and unlabored. Safety measures in place, bed locked in low position, side rails up x2, call light within reach. Will continue to monitor.
[2017-07-12 04:00] VITALS: BP 118/73
--- NOTE | 2017-07-12 04:00 | NUR ---
4AM CIWA DEFERRED CIWA deferred due to patient asleep; to be assessed and scored while patient is awake, per protocol. Patient's respirations are 14/min, even and unlabored. Safety measures in place, bed locked in low position, side rails up x2, call light within reach. Will continue to monitor.
--- NOTE | 2017-07-12 07:01 | NUR ---
END OF SHIFT Patient is a 26-year-old female admitted on 07/10/17 for ETOH dependence. Past medical history includes anxiety and depression, with a history of recurrent urinary tract infections. Patient is currently on a 5-day Ativan taper, tolerating well. Patient is FULL code, NKA, and on a regular diet. Patient is on fall and seizure precautions, with no history of seizure. Patient slept for 9 hours, total intake of 500 mL, void x2, stool x0. Patient did not receive any PRNs, in fact, patient refused scheduled Ativan 2mg last night at 2100. made aware. Patient's last CIWA score was 2. Safety measures in place, bed locked in low position, side rails up x2, call light within reach. Will endorse to day shift.
--- NOTE | 2017-07-12 07:26 | NUR ---
START OF SHIFT PT IS RESTING IN BED A/O X4, RESPIRATIONS EVEN AND UNLABORED. PT REFUSED TO HAVE ATIVAN TAPER DOSE LAST NIGHT PER PRODUCT PICKER NURSE. SIDE RAILS X2, BED IN LOWEST POSITION. CALL LIGHT WITHIN REACH. ENCOURAGED PT TO CONSUME MORE FLUIDS TO FACILITATE IN DETOX PROCESS. FALL AND SZ PRECAUTIONS TAKEN. WILL CONTINUE TO MONITOR AND PROVIDE SUPPORT.
[2017-07-12 08:00] VITALS: BP 107/70
[2017-07-12] MEDS: DOCUSATE SODIUM 250 MG CAPSULE PO SCH (08:58)
[2017-07-12] MEDS: MULTIVITAMINS,THERAPEUTIC TABLET PO SCH (08:59)
[2017-07-12] MEDS: GABAPENTIN 400 MG CAPSULE PO SCH ×4 (08:59→20:55)
[2017-07-12] MEDS: FOLIC ACID 1 MG TABLET PO SCH (08:59)
[2017-07-12] MEDS: THIAMINE HCL 100 MG TABLET PO SCH (08:59)
[2017-07-12] MEDS ORDERED: LORAZEPAM 1 MG TABLET PO SCH ×2 (09:00)
--- NOTE | 2017-07-12 11:00 | NUR ---
TRANSFER OF CARE ALL PERTINENT INFORMATION AND ENDORSEMENT GIVEN TO NURSE.
[2017-07-12 12:30] VITALS: BP 133/88
[2017-07-12] MEDS: LORAZEPAM 1 MG TABLET PO SCH ×2 (13:00→20:55)
[2017-07-12 13:07] LABS: HEPATITIS B SURFACE AG Negative (Negative)
--- NOTE | 2017-07-12 15:20 | NUR ---
TRANSFER OF CARE RESUMED CARE FOR PT. ALL ENDORSEMENT RECEIVED. WILL CONTINUE TO MONITOR.
[2017-07-12 16:00] VITALS: BP 124/87
--- NOTE | 2017-07-12 19:09 | NUR ---
END OF SHIFT PT IS A/O X4, RESPIRATIONS EVEN AND UNLABORED. PT REFUSED TO HAVE ATIVAN TAPER DOSES TODAY. PT APPEARED TO BE AGITATED AND UPSET INTERMITTENTLY THROUGHOUT THE DAY. PT STATED SHE IS AFRAID SHE WILL LOSE HER JOB IF SHE DOES NOT RETURN SOON. IVAN FROM D/C HAS SPOKE WITH HER THIS AFTERNOON ABOUT PROVIDING A DR NOTE AND A PHONE CALL TO HER EMPLOYER. LAST CIWA 2. SIDE RAILS X2, BED IN LOWEST POSITION. CALL LIGHT WITHIN REACH. ENCOURAGED PT TO CONSUME MORE FLUIDS TO FACILITATE IN DETOX PROCESS. WILL CONTINUE TO MONITOR FOR SAFETY. FALL AND SZ PRECAUTIONS TAKEN. WILL GIVE ALL PERTINENT INFORMATION TO HIDES INSPECTOR NURSE.
--- NOTE | 2017-07-12 19:30 | NUR ---
START OF SHIFT Pt is a 26 y/o female admitted on 07/10/17 for ETOH dependence. Pt was dependent on 750 ml or 5-6 beers daily. Pt is full code, NKA, regular diet and on fall/seizure precautions. Pt denies history of seizures. Pt reports PMH of anxiety and depression. Pt is on a 5 day Ativan taper that started on 07/04/17, tolerating well. Upon assessment pt presents with anxiety, restlessness, intermittent headache, chills and is tearful. Respirations 16, even and unlabored. Denies N/V/D. Denies chest pain or SOB. Medications due. Safety measures in place. Call light within reach. Will continue to monitor.
[2017-07-12 20:00] VITALS: BP 128/95
[2017-07-12] MEDS: diphenhydrAMINE 50 MG CAPSULE PO PRN (23:35)
--- NOTE | 2017-07-12 23:35 | NUR ---
PRN BENADRYL ADMINISTRATION Pt requests sleep aid. Safety measures in place. Call light within reach. Will continue to monitor.
[2017-07-13] VITALS: BP 106/69
--- NOTE | 2017-07-13 | NUR ---
CIWA DEFERRED Pt is laying in bed with eyes closed, CIWA deferred, to be assessed when pt is awake per orders. Respirations 16, even and unlabored. Safety measures in place. Call light within reach. Will continue to monitor.
--- NOTE | 2017-07-13 00:35 | NUR ---
PRN BENADRYL REASSESSMENT Pt is laying in bed with eyes closed. Respirations 16, even and unlabored. Safety measures in place. Call light within reach. Will continue to monitor.
[2017-07-13 04:00] VITALS: BP 96/60
--- NOTE | 2017-07-13 07:30 | NUR ---
END OF SHIFT Pt is a 26 y/o female admitted on 07/10/17 for ETOH dependence. Pt was dependent on 750 ml or 5-6 beers daily. Pt is full code, NKA, regular diet and on fall/seizure precautions. Pt denies history of seizures. Pt reports PMH of anxiety and depression. Pt is on a 5 day Ativan taper that started on 07/04/17, tolerating well. Pt presented with anxiety, restlessness, intermittent headache, chills and was tearful. Scheduled medications and PRN Benadryl administered, effective in S/S of withdrawal as verbalized by pt. Last CIWA 6 at 1999. Pt slept 6 hours. Intake 1500 ml, void x 3, stool x 0. Safety measures in place. Call light within reach. Pts needs have been met. Endorsed to day shift nurse.
[2017-07-13 08:03] VITALS: BP 108/69
--- NOTE | 2017-07-13 08:15 | NUR ---
START OF SHIFT: RECEIVED PT A/O X 4. SHE PRESENTS WITH GUARDED AFFECT AND ANXIOUS MOOD. SHE C/O ANXIETY,RESTLESSNESS AND IRRITABILITY. CIWA 6. ATIVAN TAPER IN PROGRESS TO MANAGE S/S OF W/D. ENCOURAGED GROUP ATTENDANCE TO IMPROVE COPING SKILLS AND PREVENT RELAPSE. WILL CONTINUE TO MONITOR AND OFFER SUPPORT.
[2017-07-13] MEDS ORDERED: LORAZEPAM 1 MG TABLET PO SCH ×3 (09:00)
[2017-07-13] MEDS: GABAPENTIN 400 MG CAPSULE PO SCH ×4 (09:15→21:52)
[2017-07-13] MEDS: MULTIVITAMINS,THERAPEUTIC TABLET PO SCH (09:16)
[2017-07-13] MEDS: FOLIC ACID 1 MG TABLET PO SCH (09:16)
[2017-07-13] MEDS: THIAMINE HCL 100 MG TABLET PO SCH (09:17)
[2017-07-13 12:00] VITALS: BP 120/88
[2017-07-13 16:00] VITALS: BP 119/83
--- NOTE | 2017-07-13 18:29 | NUR ---
END OF SHIFT: PT COMPLETED ATIVAN TAPER TO MANAGE S/S OF W/D LAST CIWA 5. PT PRESENTS WITH ANXIOUS MOOD AND CONGRUENT AFFECT. SHE IS FOCUSED ON DISCHARGE TOMORROW AND APPEARS TO MINIMIZE HER S/S OF W/D. OFFERED SUPPORT. NO PRNS GIVEN . WILL PASS SHIFT REPORT TO ONCOMING NIGHT NURSE.
--- NOTE | 2017-07-13 19:30 | NUR ---
START OF SHIFT Pt is a 26 y/o female admitted on 07/10/17 for ETOH dependence. Pt was dependent on 750 ml or 5-6 beers daily. Pt is full code, NKA, regular diet and on fall/seizure precautions. Pt denies history of seizures. Pt reports PMH of anxiety and depression. Pt finished Ativan taper and is scheduled to be D/C tomorrow. Upon assessment pt presents with anxiety, restlessness, intermittent headache, difficulty sleeping, intermittent chills, dysphoria and anhedonia. Respirations 16, even and unlabored. Denies N/V/D. Denies chest pain or SOB. Medications due. Safety measures in place. Call light within reach. Will continue to monitor.
[2017-07-13 20:00] VITALS: BP 131/89
[2017-07-13] MEDS: diphenhydrAMINE 50 MG CAPSULE PO PRN (21:52)
--- NOTE | 2017-07-13 21:52 | NUR ---
PRN BENADRYL ADMINISTRATION Pt requests sleep aid. Safety measures in place. Call light within reach. Will continue to monitor.
--- NOTE | 2017-07-13 22:52 | NUR ---
PRN BENADRYL REASSESSMENT Pt laying in bed with eyes closed. Respirations 16, even and unlabored. Safety measures in place. Call light within reach. Will continue to monitor.
--- NOTE | 2017-07-14 | NUR ---
CIWA DEFERRED AND VITALS REFUSED Pt is laying in bed with eyes closed, CIWA deferred, to be assessed when pt is awake per orders. Vitals refused. Respirations 16, even and unlabored. Safety measures in place. Call light within reach. Will continue to monitor.
--- NOTE | 2017-07-14 07:26 | NUR ---
END OF SHIFT Pt is a 26 y/o female admitted on 07/10/17 for ETOH dependence. Pt was dependent on 750 ml or 5-6 beers daily. Pt is full code, NKA, regular diet and on fall/seizure precautions. Pt denies history of seizures. Pt reports PMH of anxiety and depression. Pt finished Ativan taper and is scheduled to be D/C today. Pt presented with anxiety, restlessness, intermittent headache, difficulty sleeping, intermittent chills, dysphoria and anhedonia. Scheduled medications and PRN Benadryl administered, effective in S/S of withdrawal as verbalized by pt. Last CIWA 5 at 1999. Pt slept 7 hours. Intake 500 ml, void x 2, stool x 0. Safety measures in place. Call light within reach. Pts needs have been met. Endorsed to day shift nurse.
--- NOTE | 2017-07-14 07:30 | NUR ---
START OF SHIFT: RECEIVED PT FROM SIGNAL REPAIRER NURSE, PT IS IN STABLE CONDITION NO S/S OF PAIN OR DISCOMFORT. PT [facility] AD[facility]ITT[facility]H WITHDRAWAL/DEPENDENCE. PTS LAST CIWA 5. PT SLEPT FOR 7 HRS. PT IS SET TO DISCHARGE TODAY WILL ASSIST PT IN DISCHARGING AND WILL CONTINUE TO MONITOR PT FOR ANY CHANGES
[2017-07-14] MEDS ORDERED: LORAZEPAM 1 MG TABLET PO SCH ×2 (09:00)
[2017-07-14] MEDS: GABAPENTIN 400 MG CAPSULE PO SCH (09:03)
[2017-07-14] MEDS: FOLIC ACID 1 MG TABLET PO SCH (09:03)
[2017-07-14] MEDS: MULTIVITAMINS,THERAPEUTIC TABLET PO SCH (09:03)
[2017-07-14] MEDS: THIAMINE HCL 100 MG TABLET PO SCH (09:03)
--- NOTE | 2017-07-14 09:30 | NUR ---
DISCHARGE NOTE: PT LEFT THE UNIT IN STABLE CONDITION NO S/S OF PAIN OR DISCOMFORT. PT TEACHING ADMINISTERED AND PT VERBALIZED UNDERSTANDING. ALL PERSONAL BELONGINGS WERE RETURNED, BIMAL WILL BE TRANSFERRED HOME VIA OWN TRANSPORTATION
[2017-07-15] MEDS ORDERED: LORAZEPAM 1 MG TABLET PO SCH (09:00)
== END 2017-07-14 09:20 | disposition home or self-care (01) | DRG 895 ==
LOC: SRC 14:44
PROVIDERS: ADMIT Internal Medicine; ATTEND Internal Medicine
PROC: HZ2ZZZZ Detoxification Services for Substance Abuse Treatment (ICD-10-PCS; principal; 2017-07-10)
PROC: HZ41ZZZ Group Counseling for Substance Abuse Treatment, Behavioral (ICD-10-PCS; 2017-07-11)
PROC: HZ31ZZZ Individual Counseling for Substance Abuse Treatment, Behavioral (ICD-10-PCS; 2017-07-13)
DX: F10.230 Alcohol dependence with withdrawal, uncomplicated (principal); F17.210 Nicotine dependence, cigarettes, uncomplicated; Y90.9 Presence of alcohol in blood, level not specified; F41.9 Anxiety disorder, unspecified; Z81.1 Family history of alcohol abuse and dependence; Z81.8 Family history of other mental and behavioral disorders; Z87.440 Personal history of urinary (tract) infections; F32.9 Major depressive disorder, single episode, unspecified
CPT/HCPCS: 36415; 70030-TC; 80307; 83735; 84703; 85025; 86580; 86592; 86705; 86803; 87340; 87806; A4663; G0480; J2405; J3411; J3490; Q0163

== ENCOUNTER 2018-04-08 11:33 | Inpatient (IN) | payer BC, OTHER ==
[~2018-04-08] VITALS: Ht 170.2 cm; Wt 58.1 kg
[2018-04-08 12:15] VITALS: BP 126/86
--- NOTE | 2018-04-08 12:15 | NUR ---
pre-assessment note: assessed pt in in intake office patient is moderately intoxicated and very labile pt verbalizes she feels sick and is going to . pt is having scant amount of emesis and is nauseated at this time. pt is accompanied by friend and appears to be her support system. pt appears to be agitated with intake assessment questions. explained unit protocols and procedures
--- NOTE | 2018-04-08 12:35 | NUR ---
Admission Note: Admitted a 27 year old female for medically supervised withdrawal from ETOH under the care of Dr. Doreen Mabry. Patient denies any allergies. Alert and oriented x 4. Denies S/I or H/I at this time, however, she reports being on a 5150 psychiatric hold 6 months ago due to suicidal ideations. VS upon admission as ff: BP 126/86, Pulse 107, RR 19, Temp 98.3, O2 sat 99%, PL 0/10. Patient appears moderately intoxicated at this time. She appears disheveled, with uncombed hair, dirty fingernails, and undernourished. Dark circles around her eyes was also noted. Affect is labile with episodes of tearfulness, worried, suspiciousness and increased emotional amplitude. She repetitively states "I'm going to . I blew a 0.5 here before and I know I'm going to ." Reassurance and redirection was provided. She was noted with x 2 episodes of vomiting while in intake office and with tremors noted. She verbalizes that her typical withdrawal symptoms from ETOH are "I feel the shakes, anxious, panic attacks, no appetite, chills, headache, and I sweat so much." Patient currently denies taking any prescribed medications from home, however, per previous medical record, patient was prescribed Gabapentin 400 mg PO every 6 hours. She denies taking this medication recently. She also denies having a PCP and a psychiatrist at this time. Substance Use: 1. ETOH (Vodka/Whiskey) - since 16 years old. Patient drinks 1L of Vodka or Whiskey per day on a daily basis for 1 month. Last drink was 350cc of Vodka at 1100. 2. Marijuana - Patient reported smoking "1 hit" for pain for the first time last week. Patient denies using this on a daily basis. Past Medical Hx: Patient denies any medical hx, however, per previous medical record, patient was diagnosed with anxiety, and depression. She reports having a seizure 6 months ago due to ETOH withdrawal and received medical care. She denies having any withdrawal-induced delirium or cardiac complications related to withdrawal as well as any overdoses in the past. However, she reports blacking out everyday after drinking. She states "I black out everyday. I wake up and I see that I finished a bottle of Vodka and that's when I feel so terrible that I feel like I'm dying the next day." Consequences of Substance Abuse: Patient has struggled with multiple attempts to be sober as evidenced by multiple hospitalization to [facility] in the past with the last one being in 07/14/2017. She states her ETOH use has negatively impacted her life by impairing her relationship with her friends, getting a DUI citation, feeling sick all the time, and overall feeling of being unhappy with her life. Motivation: She states "I want to get sober cause I'm tired of feeling sick and I am scared to have another seizure so I keep drinking, but every time I drink, I feel sick. I lost a lot of friends that support me, my relationship with my family is shit, I can't keep a stable relationship with anyone and this is making me unhappy. I was sober for 6 months and I just started drinking 1 or 2 shots here and there, then it became to 1 liter. I thought I could handle just 1 or 2 but no, this is not OK. I am not OK right now." Patient verbalizes that she is willing to go to a residential treatment program once she is medically stable. She states "I want my life back. I want to be a better person, not like this, not drunk and sick like this." Treatment History: 1. [facility] - 08/2016 2. [facility] - 12/28/2016 to 12/31/2016 3. [facility] - 07/10/2017 to 07/14/2017 4. [facility] - 09/2017 x 6 months Orientation to the facility provided. Education given to the patient regarding unit's policy, procedures and protocols. Skin check done. Noted with multiple bruises mainly on her right arm, back due to a reported fall from intoxication 2 days ago. Body search done. No contraband was found. Dr. Mabry in to see and examined the patient with orders to start patient on 5-day Ativan taper to be started in AM. Orders noted and carried out. Seizure precautions in place.
[2018-04-08] MEDS ORDERED: IBUPROFEN 600 MG TABLET PO PRN (13:15)
[2018-04-08] MEDS ORDERED: MAG HYDROX/AL HYDROX/SIMETH 30 ML LIQUID UDC PO PRN (13:15)
[2018-04-08] MEDS ORDERED: ONDANSETRON ODT 4 MG TAB.RAPDIS SL PRN (13:15)
[2018-04-08] MEDS ORDERED: 5 DAY TAPER OF LORAZEPAM -SERENITY PROTOCOL PO PRN (13:15)
[2018-04-08] MEDS ORDERED: LORAZEPAM 2 MG/1 ML VIAL IM PRN (13:15)
[2018-04-08] MEDS ORDERED: MAGNESIUM HYDROXIDE 30 ML LIQUID UDC PO PRN (13:15)
[2018-04-08] MEDS ORDERED: ONDANSETRON 4 MG/2 ML VIAL IM PRN (13:15)
[2018-04-08] MEDS ORDERED: LORAZEPAM 1 MG TABLET PO PRN (13:15)
[2018-04-08 16:00] VITALS: BP 114/73
[2018-04-08 16:51] LABS: *AMPHETAMINE, URINE NEGATIVE (NEGATIVE); *BARBITURATE, URINE NEGATIVE (NEGATIVE); *CANNABINOID, URINE POSITIVE (NEGATIVE); *COCCAINE, URINE NEGATIVE (NEGATIVE); *OPIATE, URINE NEGATIVE (NEGATIVE); *PHENCYCLIDINE SCREEN,URINE NEGATIVE (NEGATIVE)
[2018-04-08 16:53] LABS: *URINE HCG, QUAL NEGATIVE (NEGATIVE)
[2018-04-08] MEDS ORDERED: THIAMINE HCL 200 MG/2 ML VIAL IM ONE (17:00)
--- NOTE | 2018-04-08 17:04 | NUR ---
CIWA Assessment/Zofran 4mg ODT/Clonidine 0.1mg/Ativan 2 mg PO given: CIWA 20, patient was noted with facial flushing, diaphoresis, gross tremors to BUE, unable to hold water bottle still, sense of panic, stating "I think I'm going to ." Calming reassurance was provided. Patient was noted with increased emotional amplitude and lability. She was noted with complains of nausea, chills, and sweats. Medicated patient with Zofran 4 mg ODT, Clonidine 0.1mg PO, Ativan 2 mg PO as ordered. Will monitor for effectiveness.
[2018-04-08] MEDS: CLONIDINE HCL 0.1 MG TABLET PO PRN (17:05)
[2018-04-08 17:24] LABS: BASOPHILS % (AUTO) 0.4 % (0.0-2.0); BILIRUBIN,TOTAL 0.4 mg/dL (0.2-1.0); CREATININE 0.8 mg/dL (0.6-1.3); EOSINOPHILS % (AUTO) 1.2 % (0.0-7.0); HEMATOCRIT 39.7 % (31.2-41.9); HEMOGLOBIN 13.4 g/dL (10.9-14.3); LYMPHOCYTES # (AUTO) 2.1 K/uL (20.0-40.0); LYMPHOCYTES % (AUTO) 54.1 % (20.5-51.5); MAGNESIUM 2.1 mg/dL (1.8-2.4); MEAN CORPUSCULAR HEMOGLOBIN 31.7 uug (24.7-32.8); MEAN CORPUSCULAR HGB CONC 34 g/dL (32.3-35.6); MEAN CORPUSCULAR VOLUME 93.8 fL (75.5-95.3); MONOCYTES # (AUTO) 0.2 K/uL (2.0-10.0); MONOCYTES % (AUTO) 5.2 % (0.0-11.0); NEUTROPHILS # (AUTO) 1.5 K/uL (1.8-8.9); NEUTROPHILS % (AUTO) 39.1 % (38.5-71.5); PLATELET COUNT (AUTO) 194 K/uL (179-408); POTASSIUM 3.9 mmol/L (3.5-5.1); RED BLOOD CELL COUNT(AUTO) 4.23 MIL/uL (3.63-4.92); TOTAL PROTEIN, SERUM 7.6 g/dL (6.4-8.2); WHITE BLOOD COUNT (AUTO) 3.8 K/uL (3.8-11.8)
--- NOTE | 2018-04-08 18:04 | NUR ---
Re-assessment: Ativan 2 mg/Zofran 4 mg/Clonidine 0.1mg Patient verbalizes that she no longer feels nauseated. Able to tolerate small sips of water. She is still visibly tremulous with sweating noted. Facial flushing still observed. CIWA 16. She states she feels less anxious after PRN meds and getting fresh air. PRNs were effective.
--- NOTE | 2018-04-08 19:02 | NUR ---
End of Shift Notes: Patient admitted today for medically supervised withdrawal from ETOH. Patient was placed on a 5-day Ativan taper that will be started tomorrow AM. VS monitored closely. No significant abnormalities noted. Withdrawal symptoms were closely monitored. Initial CIWA upon admission 11 due to anxiety, and vomiting. At 1704, patients CIWA increased to 20, presented with gross tremors, nausea, panic feeling, diaphoresis, and difficulty concentrating. Medicated patient with Ativan 2 mg, Zofran 4 mg and Clonidine 0.1mg PO as ordered. Last CIWA 16. Unable to participate in group and activities. Oral fluids encouraged. All needs met and attended. Will continue to monitor.
--- NOTE | 2018-04-08 19:30 | NUR ---
Start of shift note Received report from day shift nurse. Patient is a 27 year old female admitted for ETOH withdrawal . Patient is on 5 day Ativan taper, to start tomorrow. Patient was given PRN Ativan, Zofran and Clonidine. Last CIWA 16. Patient in the room. Patient present with flat affect, depressed mood, eye avoidant, pressured speech, anxious, restless, bilateral hand tremors, sweating, restless legs and headache. Safety measures in place. Call light in reach. Will continue to monitor.
[2018-04-08 20:00] VITALS: BP 93/62
--- NOTE | 2018-04-08 20:00 | NUR ---
CIWA assessment Patient anxious, restless, bilateral hand tremors, sweating, restless legs, sensitive to light/sound and headache. CIWA 13
[2018-04-08] MEDS: LORAZEPAM 1 MG TABLET PO PRN (21:12)
--- NOTE | 2018-04-08 22:12 | NUR ---
PRN Ativan and Motrin administration Patient anxious, restless, sweating, sensitive to light and sound, bilateral hand tremors and headache. CIWA 13
--- NOTE | 2018-04-08 23:12 | NUR ---
TIMA Gutierrez and Abeba re-assessment Patient lying in bed with eyes closed. Respiration even and unlabored. No facial grimacing. Will continue to monitor. Addendum: 04/09/18 at 0515 by CANDIDO AMAYA LVN SONG ware
[2018-04-09] VITALS: BP 106/72
--- NOTE | 2018-04-09 | NUR ---
CIWA deferred Patient lying in bed with eyes closed. Respiration even and unlabored. Will continue to monitor.
--- NOTE | 2018-04-09 02:35 | NUR ---
CIWA assessment Patient woke up anxious, restless, irritable,tremors, worried , headache and difficulty sleeping. CIWA 12
[2018-04-09] MEDS: diphenhydrAMINE 50 MG CAPSULE PO PRN (02:36)
[2018-04-09] MEDS: LORAZEPAM 1 MG TABLET PO PRN (02:36)
--- NOTE | 2018-04-09 02:36 | NUR ---
PRN Ativan and Benadryl administration Patient woke up anxious, restless, irritable,tremors, worried , headache and difficulty sleeping. CIWA 12
--- NOTE | 2018-04-09 03:36 | NUR ---
PRN Ativan and Benadryl re-assessment Patient lying in bed with eyes closed. Respiration even and unlabored. Will continue to monitor. CIWA deferred
[2018-04-09 04:00] VITALS: BP 106/78
--- NOTE | 2018-04-09 04:00 | NUR ---
CIWA deferred Patient lying in bed with eyes closed. Respiration even and unlabored. Will continue to monitor.
--- NOTE | 2018-04-09 07:15 | NUR ---
End of shift note Patient slept 9 hours. Fluid intake 500 ml. Voided x 2 . No BM. Monitored patient throughout shift. Patient presented with flat affect, depressed mood, eye avoidant, pressured speech, anxious, restless, bilateral hand tremors, restless legs and headache. Patient was given PRN Motrin and Ativan. At 0236, patient woke up anxious , restless and difficulty sleeping. PRN Ativan and Benadryl given. Safety measures in place. Call light in reach. Will continue to monitor. Last CIWA .
--- NOTE | 2018-04-09 07:17 | NUR ---
End of shift note Patient slept 10 hours. Fluid intake 500 ml. Voided x 1. No BM. Monitored patient throughout shift. Patient in his room most of the shift. Patient withdrawn . Patient presented with flat affect, eye avoidant, anxious, restless, sweating, sensitive to light and sound, bilateral hand tremors and headache. Scheduled medication given as ordered. Taper to start tomorrow. PRN Ativan given at 2057 for CIWA 11. Safety measures in place. Call light in reach. Will continue to monitor. Last CIWA 11. Addendum: 04/09/18 at 0718 by CANDIDO AMAYA LVN error:this is for another patient
[2018-04-09 08:00] VITALS: BP 110/67
--- NOTE | 2018-04-09 08:00 | NUR ---
Start of Shift Notes/CIWA Assessment: Patient is a 27 year old female admitted for ETOH withdrawal who will be starting her 5-day Ativan taper today as ordered. Per night report, patient was given PRN Ativan 1 mg x 1, Motrin and Benadryl was given during the night. Last CIWA 12, slept for 9 hours. Received patient in her room. Awake, alert and oriented x 4. Denies S/I or H/I. No AV hallucinations. Patient appears flushed, disheveled, dark circles around eyes and unwashed hair. Patient is odorous and with odorous breath with visible tremors and sweats. CIWA 17. Patient complains of having vivid dreams, sense of panic, feelings of guilt and shame and easy irritable. Educated patient on her current plan of care for the day and her medication regimen. Encouraged oral fluid intake and encouraged group participation to learn new skills to prevent relapse. All needs met and attended. On seizure and fall precautions. Will continue to monitor.
[2018-04-09] MEDS: CLONIDINE HCL 0.1 MG TABLET PO PRN (08:09)
[2018-04-09] MEDS: THIAMINE HCL 100 MG TABLET PO SCH (08:09)
[2018-04-09] MEDS: FOLIC ACID 1 MG TABLET PO SCH (08:09)
[2018-04-09] MEDS: MULTIVITAMINS,THERAPEUTIC TABLET PO SCH (08:09)
[2018-04-09] MEDS: LORAZEPAM 1 MG TABLET PO SCH ×4 (08:09→20:33)
--- NOTE | 2018-04-09 08:09 | NUR ---
Clonidine 0.1mg PO given: Patient noted with increased gross tremors, visibly shaking and unable to hold water bottle steady. She is verbalizing that she feels like she is having a panic attack. VS stable. Patient was provided with calming reassurance. Medicated patient with Clonidine 0.1mg PO as ordered in addition to her AM meds.
[2018-04-09] MEDS ORDERED: TUBERCULIN,PURIF.PROT.DERIV. 5 TU/0.1 ML TEST ID ONE (09:00)
--- NOTE | 2018-04-09 09:09 | NUR ---
Re-assessment: Clonidine Patient continues to appear with gross tremors, and sweats. She verbalizes that she feels less anxious. PRN Clonidine was effective.
[2018-04-09 12:00] VITALS: BP 91/50
--- NOTE | 2018-04-09 12:15 | NUR ---
CIWA Assessment: CIWA 16, patient continues to present with s.s of withdrawal m.b increased anxiety, diaphoresis, panic attacks, chills, and generalized discomfort. Will continue with detox meds as ordered.
[2018-04-09 16:00] VITALS: BP 103/68
--- NOTE | 2018-04-09 16:19 | NUR ---
CIWA Assessment: CIWA 13, patient continues to present with gross tremors, facial flushing, diaphoresis, anxiety and agitation. Will continue with detox meds as ordered.
--- NOTE | 2018-04-09 19:00 | NUR ---
End of Shift Notes: Patient initiated her 5-day Ativan taper to manage symptoms related to ETOH withdrawal. VS monitored closely. No significant abnormalities noted. Withdrawal symptoms were closely monitored. Initial CIWA 17, patient presented with gross tremors, diaphoresis, facial flushing, chills, hot flashes, nausea, malaise, fatigue, vivid dreams, anxiety, panic attacks, agitation and generalized discomfort. Medicated patient with Clonidine 0.1mg PO at 0809 with help. Last CIWA 13. Patient verbalizes that Ativan has been effective in reducing her withdrawal symptoms. She was unable to participate in group and activities due to her withdrawal symptoms. All needs met and attended. Will continue to monitor closely.
--- NOTE | 2018-04-09 19:30 | NUR ---
Start Of Shift: Patient is a 27 yr old female who was admitted to [facility] on 04/08/18 for a medically supervised withdrawal from ETOH ( Vodka/Whisky), she has been placed on a 5 day Ativan taper and today is day 1. PRN Clonidine was given on day shift, her last CIWA was 13 @ 1600. Currently she is lying in bed with eyes closed, breathing even and unlabored. Continue to follow MD plan of care and offer support and encouragement as needed.
[2018-04-09 20:00] VITALS: BP 93/59
--- NOTE | 2018-04-09 20:30 | NUR ---
CIWA 15 Withdrawal symptoms present as drenching sweats, chills, gross hand tremors, lethargy and decreased appetite. Scheduled 2 mg PO Ativan given
[2018-04-10] VITALS: BP 101/64
--- NOTE | 2018-04-10 | NUR ---
SONG 13 patient presents with diaphoresis/chills, increased anxiety, lethargy and depression.
--- NOTE | 2018-04-10 04:00 | NUR ---
CIWA CIWA deferred due to sleep Vital Signs deferred due to patient request to sleep uninterrupted.RR 14, breathing even and unlabored.
--- NOTE | 2018-04-10 06:44 | NUR ---
End Of Shift: Patient is a 27 yr old female who was admitted to [facility] on 04/08/18 for a medically supervised withdrawal from ETOH ( Vodka and Whisky), she has been placed on a 5 day Ativan taper and today is day 2. Her withdrawal symptoms include diaphoresis, chills , dry mouth, difficulty thinking clearly and decreased appetite, she appears sad and depressed and has a flat affect. No PRN medications were requested or required on this shift, she had a fluid intake of 1100 ML,3 Voids and 0 BM, her last CIWA was 13 @ midnight and she slept for 10 hours. Continue to follow MD plan of care and offer support and encouragement as needed. Endorsed to day shift.
--- NOTE | 2018-04-10 07:40 | NUR ---
START OF SHIFT Received report from retail shift manager nurse. Pt is lying in bed resting with eyes closed and is easily arousable. She is a 27 yo female admitted to [facility] on 04/08 for ETOH withdrawal. 5 day Ativan taper started on 04/09. No PRN medications administered on nightshift. Last CIWA was 10 and she slept for 10 hours. Respirations even and unlabored. Skin is warm and moist. Safety measures in place.
[2018-04-10 08:00] VITALS: BP 113/78
[2018-04-10] MEDS: LORAZEPAM 1 MG TABLET PO SCH ×3 (09:00→20:59)
[2018-04-10] MEDS: FOLIC ACID 1 MG TABLET PO SCH (09:15)
[2018-04-10] MEDS: THIAMINE HCL 100 MG TABLET PO SCH (09:16)
[2018-04-10] MEDS: MULTIVITAMINS,THERAPEUTIC TABLET PO SCH (09:16)
--- NOTE | 2018-04-10 09:40 | NUR ---
CIWA Assessment Pt reports having anxiety. She is observed with dilated pupils and has moist skin. Her affect is flat and mood is depressed. CIWA score 8.
--- NOTE | 2018-04-10 10:00 | NUR ---
Nursing note Pt refused 0900 Ativan. She was educated regarding the risks of refusing taper medications and was encouraged to comply with treatment. Pt continued to refuse. She is preoccupied with personal issues. made aware.
[2018-04-10 12:06] LABS: HEPATITIS B SURFACE AG Negative (Negative)
--- NOTE | 2018-04-10 12:11 | NUR ---
Therapist prompted client to attend all group therapy sessions.
[2018-04-10 12:30] VITALS: BP 110/63
--- NOTE | 2018-04-10 12:30 | NUR ---
CIWA Assessment Pt reports anxiety and her facial expression is strained. Her mood is depressed. She has dilated pupils, facial flushing, and moist skin. Pt appears disheveled and has not yet showered today. CIWA score 12.
[2018-04-10 16:30] VITALS: BP 121/74
--- NOTE | 2018-04-10 16:30 | NUR ---
CIWA Assessment Pt is anxious with mild tremors and light sensitivity. She has moist skin and facial flushing. CIWA score 10.
--- NOTE | 2018-04-10 19:15 | NUR ---
END OF SHIFT Report provided to warehouse shift supervisor nurse. Pt is lying in bed resting. She is a 27 yo female admitted to [facility] on 04/08 for ETOH withdrawal. 5 day Ativan taper started on 04/09. She refused 0900 dose of Ativan taper. aware. She took the taper doses for the rest of the day. No PRN medications administered. Last CIWA was 10. She drank 1951mL and ate 100% of meals. Safety measures in place.
--- NOTE | 2018-04-10 19:30 | NUR ---
START OF SHIFT Received 27 year old female patient admitted on 04/08/18 for ETOH withdrawal. Pt is alert and oriented x4. Pt noted with flushed face, anxiety, irritability, and fine tremors. Per endorsement, she did not receive or request PRN medications. She is on a 5 day Ativan taper and tolerating well. Per endorsement, she refused AM dose. is aware. Last CIWA:10 at 1600. Breathing is even and unlabored, safety measures in place. Will monitor.
--- NOTE | 2018-04-10 20:00 | NUR ---
CIWA Pt noted with flushed face, complains of nausea and increased anxiety. CIWA:12 prior to 2100 medications. Will continue to monitor.
[2018-04-10 20:11] VITALS: BP 125/72
[2018-04-11] VITALS: BP 115/65
--- NOTE | 2018-04-11 | NUR ---
CIWA DEFERRED 0000 CIWA deferred. Pt lying in bed with eyes closed noted to be asleep. Breathing is even and unlabored, safety measures in place. Will monitor.
--- NOTE | 2018-04-11 02:10 | NUR ---
PRN BENADRYL Pt complains of difficulty falling back asleep. PRN Benadryl administered as ordered. Safety measures in place. Will continue to monitor.
--- NOTE | 2018-04-11 02:10 | NUR ---
CIWA Pt complains of difficulty falling back asleep, restlessness and anxiety. CIWA:10.
[2018-04-11] MEDS: diphenhydrAMINE 50 MG CAPSULE PO PRN ×2 (02:15→21:35)
--- NOTE | 2018-04-11 03:10 | NUR ---
PRN BENADRYL REASSESSMENT PRN medication effective. Pt is lying in bed with eyes closed noted to be asleep. Breathing is even and unlabored, safety measures in place. Will continue to monitor.
--- NOTE | 2018-04-11 04:00 | NUR ---
VITALS REFUSED, CIWA DEFERRED 0400 vitals refused. CIWA deferred d/t pt lying in bed with eyes closed noted to be asleep. Breathing is even and unlabored, safety measures in place. Will monitor.
--- NOTE | 2018-04-11 07:19 | NUR ---
END OF SHIFT Pt is a 27 year old female patient admitted on 04/08/18 for ETOH withdrawal. She remains alert and oriented x4. She was noted with flushed face, anxiety, irritability, and fine tremors during the shift. She continues on a 5 day Ativan taper and tolerating well. At 0210 she received PRN Benadryl for sleep. She slept a total of 7 hrs, Intake:750mL, Void: x2, BM:0, Last CIWA:10 @ 0200. Breathing is even and unlabored, safety measures in place. Endorsed to AM shift.
--- NOTE | 2018-04-11 07:30 | NUR ---
Start of Shift Cutting Table Operator received report on 27 year old female admitted to [facility] on 04/08/18 for medical management of ETOH withdrawals. Pt endorse NKA, full code and regular diet. PMH to include history of withdrawal related seizures, last in 09/2017. PPH of anxiety and depression. Pt currently on a 5 day Ativan taper, last CIWA 10, per report. Pt was administered PRN Benadryl(insomnia) on NOC, per report. Cutting Table Operator encounters pt in pts room, pt resting with eyes closed, even and unlabored respirations. Bed in low position with wheels locked and side rails up x2. Will continue to monitor, support and encourage according to plan of care.
[2018-04-11 08:00] VITALS: BP 98/61
--- NOTE | 2018-04-11 08:00 | NUR ---
CIWA 5 Pt has minimal complaints, but has moist skin, fine tremors and is anxious. Will continue to monitor, support and encourage according to plan of care.
[2018-04-11] MEDS: LORAZEPAM 1 MG TABLET PO SCH ×4 (09:00→21:35)
--- NOTE | 2018-04-11 09:23 | NUR ---
Therapist prompted client to attend all group therapy sessions and client agreed to attend.
[2018-04-11] MEDS: MULTIVITAMINS,THERAPEUTIC TABLET PO SCH (10:03)
[2018-04-11] MEDS: THIAMINE HCL 100 MG TABLET PO SCH (10:04)
[2018-04-11] MEDS: FOLIC ACID 1 MG TABLET PO SCH (10:04)
[2018-04-11 12:00] VITALS: BP 105/63
--- NOTE | 2018-04-11 12:00 | NUR ---
CIWA 5 Pt is anxious and has moist skin, pt denies any further symptoms. Will continue to monitor, support and encourage according to plan of care.
[2018-04-11 16:30] VITALS: BP 115/75
--- NOTE | 2018-04-11 19:28 | NUR ---
End of Shift Office Inspector provided report on 27 year old female admitted to [facility] on 04/08/18 for medical management of ETOH withdrawals. Pt endorse NKA, full code and regular diet. PMH to include history of withdrawal related seizures, last in 09/2017. PPH of anxiety and depression. Pt currently on a 5 day Ativan taper, last CIWA 5. No PRN medication administered this shift. Pt requests to shorten taper to allow pt to discharge on Tuesday morning, instead of Tuesday. Pts taper has been adjusted to reflect targeted discharge date on Tuesday. Pt required medication education to continue taper, but has been compliant. Pt is A/O x4 and makes needs known. Pt with a full range of emotions and full affect. Linear thought process and clear speech pattern. Pt is anxious and has moist skin, but denies all associated symptoms of withdrawals. Bed in low position with wheels locked and side rails up x2.
--- NOTE | 2018-04-11 19:30 | NUR ---
START OF SHIFT Received 27 year old female admitted on 04/08/18 for ETOH withdrawal. Pt is alert and oriented x4. Pt noted with flushed face, and flat affect. She continues on her Ativan taper which has been adjusted and she will discharge on Tuesday04/14/18. Per endorsement, she did not receive or request any PRN medications. Last CIWA:5 at 1600. Breathing even and unlabored, safety measures in place. Will continue to monitor.
[2018-04-11 20:00] VITALS: BP 99/62
--- NOTE | 2018-04-11 20:00 | NUR ---
CIWA Pt complains of anxiety, restlessness, and difficulty falling asleep. CIWA 5, will continue to monitor.
--- NOTE | 2018-04-11 21:35 | NUR ---
PRN Benedryl Pt complain of difficulty sleeping and requestd Benedryl. PRN Benedryl administered as ordered.. Will monitor effectiveness.
--- NOTE | 2018-04-11 22:35 | NUR ---
PRN Benedryl reassess PRN medication effective, pt lying in bed eyes closed and resting. Will continue to monitor.
[2018-04-12] VITALS: BP 96/70
--- NOTE | 2018-04-12 | NUR ---
CIWA Pt complains of restlessness, and anxiety. CIWA:5. Will continue to monitor.
--- NOTE | 2018-04-12 04:00 | NUR ---
CIWA DEFERRED/VITALS REFUSED Pt lying in bed with eyes closed, CIWA deferred, to be assessed when pt awake per orders. Vitals refused. Respirations even and unlabored. Safety measures in place. Call light in reach. Will continue to monitor.
--- NOTE | 2018-04-12 07:11 | NUR ---
END OF SHIFT Pt is a 27 year old female admitted on 04/08/18 for ETOH withdrawal. She remains alert and oriented x4. She was noted with flushed face, anxiety and flat affect during the shift. She continues on her Ativan taper and is tolerating well. At 2135 she received PRN Benadryl for sleep. She slept a total of 9 hrs, Intake: 750mL Void:x2, BM:0. Last CIWA:5 at 0000. Breathing even and unlabored, safety measures in place. Will endorse to AM shift.
--- NOTE | 2018-04-12 07:30 | NUR ---
Start of Shift Fundraising Manager received report on 27 year old female admitted to [facility] on 04/08/18 for medical management of ETOH withdrawals. Pt endorse NKA, full code and regular diet. Pt denies any PMH. PPH of anxiety and depression. Pt denies any history of seizures. Pt currently on a 5 day Ativan taper, last CIWA 5, per report. Pt was administered PRN Benadryl(insomnia) on NOC, per report. Fundraising Manager encounters pt in pts room. Pt is A/O x4 and makes her needs known. Linear thought process with clear speech pattern. Normal affect and mood. Pt endorses some anxiety and has moist skin and is restless, denies any other symptoms of withdrawals. Bed in low position with wheels locked and side rails up x2. Will continue to monitor, support and encourage according to plan of care.
[2018-04-12 08:00] VITALS: BP 117/69
--- NOTE | 2018-04-12 08:00 | NUR ---
CIWA 5 Pt with moist skin, fine tremors and anxiety and restlessness. Will continue to monitor, support and encourage according to plan of care.
[2018-04-12] MEDS ORDERED: LORAZEPAM 1 MG TABLET PO SCH (09:00)
[2018-04-12] MEDS: THIAMINE HCL 100 MG TABLET PO SCH (09:27)
[2018-04-12] MEDS: LORAZEPAM 1 MG TABLET PO SCH ×3 (09:27→21:00)
[2018-04-12] MEDS: FOLIC ACID 1 MG TABLET PO SCH (09:27)
[2018-04-12] MEDS: MULTIVITAMINS,THERAPEUTIC TABLET PO SCH (09:27)
[2018-04-12 12:00] VITALS: BP 113/80
--- NOTE | 2018-04-12 12:00 | NUR ---
CIWA 6 Pt is anxious and restless with fine tremors. Will continue to monitor, support and encourage according to plan of care
--- NOTE | 2018-04-12 12:22 | NUR ---
Therapist prompted client to attend all group therapy sessions.
[2018-04-12 16:00] VITALS: BP 113/76
--- NOTE | 2018-04-12 16:00 | NUR ---
CIWA 6 Pt is anxious and restless with moist skin, no further complaints made. Will continue to monitor, support and encourage according to plan of care.
--- NOTE | 2018-04-12 19:51 | NUR ---
End of Shift Casket Inspector provided report on 27 year old female admitted to [facility] on 04/08/18 for medical management of ETOH withdrawals. Pt endorse NKA, full code and regular diet. Pt denies any PMH. PPH of anxiety and depression. Pt denies any history of seizures. Pt currently on a 5 day Ativan taper, last CIWA 6. No PRN medications administered this shift. Pt is A/O x4 and makes her needs known. Linear thought process with clear speech pattern. Normal affect and mood. Pt is anxious and has moist skin. Pt has been visible and social with peers. Bed in low position with wheels locked and side rails up x2.
--- NOTE | 2018-04-12 19:52 | NUR ---
Start of shift note Received report from day shift nurse. Pt is a 27 yo female, A+Ox4, presenting to [facility] for medically supervised ETOH withdrawal. Pt noted with agitation, restlessness, and anxiety. Pt has HX of anxiety, depression, and seizure which will be monitored during shift. Pt is on 5 day Ativan taper, tolerated well. Respirations even and unlabored. Will continue to monitor.
[2018-04-12 20:11] VITALS: BP 114/75
--- NOTE | 2018-04-12 20:11 | NUR ---
CIWA Assessment CIWA: 7. Pt noted with sweat on brow, anxiety, and agitation. Respirations even and unlabored. Will continue to monitor.
[2018-04-12] MEDS: diphenhydrAMINE 50 MG CAPSULE PO PRN (21:09)
--- NOTE | 2018-04-12 21:09 | NUR ---
PRN Benadryl Pt c/o inability to sleep and requested for PRN Benadryl. Medication given and tolerated well. Will reassess within 1 HR. Will continue to monitor.
--- NOTE | 2018-04-12 22:05 | NUR ---
PRN Benadryl Reassessment Medication effective. Pt is resting well in bed. No s/s of ASE noted at this time. Respirations even and unlabored. Will continue to monitor.
--- NOTE | 2018-04-13 00:17 | NUR ---
V/S refused and CIWA assessment deferred for sleep. Respirations even and unlabored. Will continue to monitor.
--- NOTE | 2018-04-13 04:45 | NUR ---
V/S refused and CIWA assessment deferred for sleep. Respirations even and unlabored. Will continue to monitor.
--- NOTE | 2018-04-13 07:00 | NUR ---
End of shift note Pt was continuously noted with restlessness, anxiety, and agitation. Pt remained in room for majority of shift except to get food from kitchen and to go smoke on smoking patio. Pt remained cooperative and compliant with all aspects of treatment. Pt was given PRN Benadryl @2108. Pt remains on 5 day Ativan taper, however patient refused 2100 dose of Ativan. Pt slept for a total of 9 HRS. Last CIWA: 7 @2010. Respirations even and unlabored. Will endorse to day shift nurse.
--- NOTE | 2018-04-13 07:30 | NUR ---
START OF SHIFT Endorse rcvd from ongoing nurse, client is in room, a/o x 4, she presents with agitation, anxiety, depression, difficulty concentrating, fatigue, and flushed face. Client reports feeling anxious because doctor has not given her medical clearance to leave today. PRN Benadryl 50mg PO administered for inability to sleep, client slept 9 hrs. Last CIWA 7 @ 2000. Seizure precautions in place. Encourage client to attend group therapy to learn skills to maintain sober. Call light within reach.
[2018-04-13 08:40] VITALS: BP 108/71
[2018-04-13] MEDS: FOLIC ACID 1 MG TABLET PO SCH (08:42)
[2018-04-13] MEDS: THIAMINE HCL 100 MG TABLET PO SCH (08:42)
[2018-04-13] MEDS: MULTIVITAMINS,THERAPEUTIC TABLET PO SCH (08:42)
--- NOTE | 2018-04-13 08:44 | NUR ---
CIWA 8 Client presents with anxious mood, flat affect, tremors felt, not observed and clammy skin. Client reports feeling anxious because she wishes to leave today. Client refused scheduled Ativan 1mg PO stating, "I want to leave today, I have to see my therapist tomorrow at noon." SARA and made aware. Call light within reach.
[2018-04-13] MEDS ORDERED: LORAZEPAM 1 MG TABLET PO SCH ×3 (09:00)
--- NOTE | 2018-04-13 12:00 | NUR ---
CIWA 6 Client presents with anxiety and agitation, she wants to speak with the doctor and get medical clearance to leave today. MD notified. Call light within reach.
[2018-04-13 12:55] VITALS: BP 116/73
[2018-04-13 16:00] VITALS: BP 128/76
[2018-04-13] MEDS ORDERED: HYDROXYZINE PAMOATE 25 MG CAPSULE PO PRN (16:00)
--- NOTE | 2018-04-13 16:05 | NUR ---
KELVINWA 8 Client presents with anxiety and agitation, she agrees to take Vistaril and Clonidine.
[2018-04-13] MEDS: CLONIDINE HCL 0.1 MG TABLET PO PRN ×2 (16:07→22:24)
--- NOTE | 2018-04-13 16:07 | NUR ---
PRN Clonidine 0.1mg PO and Vistaril 50mg PO administered for agitation and anxiety, mb increased P 108. Call light within reach.
--- NOTE | 2018-04-13 17:07 | NUR ---
Reassess PRN Clonidine 0.1mg PO and Vistaril 50mg PO, client reports slight relief from agitation and anxiety, P 82. Call light within reach.
--- NOTE | 2018-04-13 19:30 | NUR ---
END OF SHIFT Endorse client to incoming nurse, client is in room, a/o x 4. Client continues to present with anxiety, decreased appetite, and fatigue. Last CIWA 8 @ 1600. Client is schedule for discharge tomorrow. Adequate PO fluid intake 2855 mL, void x 6, stool x 1.Client is compliant with group therapy. Consumes 75% of meals. Call light within reach.
--- NOTE | 2018-04-13 19:31 | NUR ---
Start of shift note Received report from day shift nurse. Pt is a 27 yo female A+Ox4, presenting to [facility] [place] for medically supervised ETOH withdrawal. Pt was also using Marijuana. Pt noted with restlessness, anxiety, and agitation. Pt has HX of anxiety, depression, and seizure which will be monitored during shift. Pt has completed 5 day Ativan taper, tolerated well, and is due for discharge tomorrow. Respirations even and unlabored. Will continue to monitor.
[2018-04-13 20:12] VITALS: BP 121/82
--- NOTE | 2018-04-13 20:12 | NUR ---
CIWA Assessment CIWA: 6. Pt noted with anxiety and agitation. Respirations even and unlabored. Will continue to monitor.
[2018-04-13] MEDS: diphenhydrAMINE 50 MG CAPSULE PO PRN (22:23)
--- NOTE | 2018-04-13 22:24 | NUR ---
PRN Benadryl and Clonidine Pt c/o inability to sleep and anxiety. PRN Benadryl and Clonidine given and tolerated well. Will reassess within 1 HR. Will continue to monitor.
--- NOTE | 2018-04-13 23:20 | NUR ---
PRN Benadryl and Clonidine Reassessment Medications effective. Pt expresses reduction of anxiety and is resting well in bed. No s/s of ASE noted at this time. Respirations even and unlabored. Will continue to monitor.
--- NOTE | 2018-04-14 00:18 | NUR ---
V/S refused and CIWA deferred for sleep. Respirations even and unlabored. Will continue to monitor.
--- NOTE | 2018-04-14 04:56 | NUR ---
V/S refused and CIWA deferred for sleep. Respirations even and unlabored. Will continue to monitor.
--- NOTE | 2018-04-14 07:00 | NUR ---
End of shift note Pt was continuously noted with anxiety, agitation, and restlessness. Pt remained in room for majority of shift except to get food from kitchen and to go smoke on smoking patio. Pt remained cooperative and compliant with all aspects of treatment. Pt was given PRN Benadryl and Clonidine @4. Pt has completed 5 day Ativan taper, tolerated well, and is due for discharge today. Pt slept for a total of 7 HRS. Last CIWA: 6 @2011. Respirations even and unlabored. Will endorse to day shift nurse.
--- NOTE | 2018-04-14 07:55 | NUR ---
BEGINNING OF SHIFT Patient endorsement report received from software integration developer nurse, all pertinent information was discussed. Patient with admitting Dx: etoh withdrawal. Patient completed 5 day Ativan taper as ordered, scheduled to be discharged this morning. Per software integration developer patient slept for 7 hours, received PRN: Benadryl and clonidine per software integration developer medications effective. Patient with last CIWA score of: 6. Patient received awake, alert and oriented. Noted with anxious mood. Educated regarding plan of care for the day and will educate regarding all discharge instructions. safety measures are in place. call light with in reach, will continue to monitor closely.
[2018-04-14 08:33] VITALS: BP 123/78
[2018-04-14] MEDS ORDERED: CLON0.1T14 PO (08:40)
[2018-04-14] MEDS ORDERED: HYDR-3895 PO (08:40)
[2018-04-14] MEDS: THIAMINE HCL 100 MG TABLET PO SCH (08:51)
[2018-04-14] MEDS: FOLIC ACID 1 MG TABLET PO SCH (08:51)
[2018-04-14] MEDS: MULTIVITAMINS,THERAPEUTIC TABLET PO SCH (08:51)
--- NOTE | 2018-04-14 09:38 | NUR ---
DISCHARGE Patient discharged off the unit in stable condition and not in any apparent acute distress at 0938, prior to discharge patient was provided with education and teaching regarding all discharge instructions with good verbal understanding. Patient noted self motivated towards sobriety. Patient discharged to home. patient did not bring any home medications, prescriptions sent via [facility] , discharge instructions were placed in patients personal duffel bag. Patient with last CIWA score of: 5. vital signs WNL. patient off the unit at 0938.
== END 2018-04-14 09:38 | disposition home or self-care (01) | DRG 895 ==
LOC: SRC 11:52
PROVIDERS: ADMIT Internal Medicine; ATTEND Internal Medicine
PROC: HZ41ZZZ Group Counseling for Substance Abuse Treatment, Behavioral (ICD-10-PCS; principal; 2018-04-08)
PROC: HZ31ZZZ Individual Counseling for Substance Abuse Treatment, Behavioral (ICD-10-PCS; principal; 2018-04-08)
PROC: HZ2ZZZZ Detoxification Services for Substance Abuse Treatment (ICD-10-PCS; principal; 2018-04-08)
DX: F10.230 Alcohol dependence with withdrawal, uncomplicated (principal); Y90.8 Blood alcohol level of 240 mg/100 ml or more; S50.01XA Contusion of right elbow, initial encounter; X58.XXXA Exposure to other specified factors, initial encounter; Y92.89 Other specified places as the place of occurrence of the external cause; Z87.440 Personal history of urinary (tract) infections; Z81.8 Family history of other mental and behavioral disorders; G47.00 Insomnia, unspecified; F41.9 Anxiety disorder, unspecified; F32.9 Major depressive disorder, single episode, unspecified
CPT/HCPCS: 36415; 70030-TC; 80307; 80349; 83690; 83735; 84703; 85025; 86580; 86592; 86705; 86803; 87340; 87806; A4663; G0480; J3411; Q0162; Q0163